=== PATIENT | female | born 1960 | race Caucasian/White ===

== ENCOUNTER 2017-02-05 15:35 | Inpatient (IN) | payer OTHER ==
[2017-02-05 16:44] LABS: BASOPHIL 4.5 % (0-2.0); EOSINOPHIL 1.7 % (0-4.5); MCH 30.5 pg (25.7-33.7); MCHC 33.6 g/dl (32.0-36.0); MEAN CELL VOLUME 90.7 fl (80-96); MEAN PLT VOLUME 8.2 fl (7.5-11.1); NEUTROPHILS 69.8 % (42.8-82.8); PLATELET COUNT 314 K/MM3 (134-434); RDW 13.5 % (11.6-15.6); WHITE BLOOD COUNT 10.6 K/mm3 (4.0-10.8)
[2017-02-05 17:05] LABS: ALBUMIN 4.2 g/dl (3.5-5.0); ALK PHOS 61 U/L (32-92); ANION GAP 14 (8-16); BILIRUBIN,TOTAL 0.6 mg/dl (0.2-1.0); CALCIUM 9.8 mg/dl (8.4-10.2); CO2 22 mmol/L (22-28); GLUCOSE,RANDOM 87 mg/dl (74-106); SGOT/AST 19 U/L (10-42); SGPT/ALT 14 U/L (10-40); TOT PROT 7.1 g/dl (6.4-8.3)
[2017-02-05 17:06] LABS: COCKROFT - GAULT NT
--- NOTE | 2017-02-05 17:08 | PDOC ---
History of Present Illness - General History Source: Patient Exam Limitations: No Limitations - History of Present Illness Initial Comments: 02/05/17 17:40 Patient is a 57 year old female with pmhx of lymphoma and recurrent bowel obstructions who presents to the ED with nausea, vomiting, abdominal pain and abdominal distention. Patient reports the abdominal pain to be localized to her upper/mid abdomen, sharp, aching, deep pain in nature, 7/10 in severity. Patient also reports chills. Patient states that this morning while she was at work she developed abdominal pain, cramping/spasm in nature, 7/10 in severity. She then reports abdominal distention and an episode of vomiting. Patient contacted Dr. Blackman who ordered hyoscyamine to her pharmacy which alleviated the pain slightly. Patient states her last bowel movement was yesterday. She states that she had coffee and juice and nothing else. PMH: Lymphoma, chronic low back pain, lumbar herniated disc PSH: abdominal lymph node biopsy, hysterectomy, abdominal scar tissue removal. Social history: No smoking, no alcohol, no recreational drug Allergy: clindamycin <Renu Hill - Last Filed: 02/05/17 17:40> - General History Source: Patient Exam Limitations: No Limitations <Kaitlin Georges - Last Filed: 02/06/17 10:51> - General Chief Complaint: Nausea/Vomiting Stated Complaint: BOWEL OBSTRUCTION Time Seen by Provider: 02/05/17 16:45 Past History <Renu Hill - Last Filed: 02/05/17 17:40> - Past Medical History Anemia: No Asthma: No Cancer: Yes (INTESTINAL LYMPHOMA) Cardiac Disorders: No CVA: No COPD: No CHF: No Dementia: No Diabetes: No GI Disorders: Yes (SMALL BOWEL OBSTRUCTION, IBF) Disorders: No HTN: No Hypercholesterolemia: No Liver Disease: No Seizures: No Thyroid Disease: Yes (THYROID NODULE) - Surgical History Abdominal Surgery: Yes (INTESTINAL BX & LYMPH NODES) Appendectomy: No Cardiac Surgery: No Cholecystectomy: No Lung Surgery: No Neurologic Surgery: No Orthopedic Surgery: No - Immunization History Immunization Up to Date: No - Psycho/Social/Smoking Cessation Hx Anxiety: No Suicidal Ideation: No Smoking Status: No Smoking History: Never smoked Have you smoked in the past 12 months: No Number of Cigarettes Smoked Daily: 0 Information on smoking cessation initiated: No Hx Alcohol Use: Yes (wine occasionally) Drug/Substance Use Hx: No Substance Use Type: None Hx Substance Use Treatment: No <Kaitlin Georges - Last Filed: 02/06/17 10:51> - Past Medical History Allergies/Adverse Reactions: Allergies Allergy/AdvReac Type Severity Reaction Status Date / Time clindamycin AdvReac Intermediate Nausea Verified 02/05/17 15:54 Home Medications: Ambulatory Orders Cholecalciferol (Vitamin D3) [Vitamin D3] 1,000 unit PO DAILY capsule 11/19/12 Review of Systems - Review of Systems Able to Perform ROS?: Yes Comments:: 02/05/17 17:40 GENERAL/CONSTITUTIONAL: (+)chills. No: fever, weakness, loss of appetite. HEAD, EYES, EARS, NOSE AND THROAT: No: change in vision, ear pain, discharge, sore throat, throat swelling. CARDIOVASCULAR: No: chest pain, lightheadedness, palpitations, syncope RESPIRATORY: No: cough, shortness of breath, wheezing, hemoptysis, stridor. GASTROINTESTINAL: (+)nausea, vomiting, abdominal cramping, abdominal distention. No: diarrhea, rectal bleeding, constipation. GENITOURINARY: No: dysuria, hematuria, frequency, urgency, flank pain. MUSCULOSKELETAL: No: back pain, neck pain, joint pain, muscle swelling or pain SKIN: No: lesions, pallor, rash or easy bruising. NEUROLOGIC: No: headache, vertigo, paresthesias, weakness ENDOCRINE: No: unexplained weight gain or loss HEMATOLOGIC/LYMPHATIC: No: anemia, easy bleeding, swelling nodes <Renu Hill - Last Filed: 02/05/17 17:40> *Physical Exam - Vital Signs Last Vital Signs Temp Pulse Resp BP Pulse Ox 98.1 F 72 18 117/68 100 02/05/17 15:37 02/05/17 15:37 02/05/17 15:37 02/05/17 17:32 02/05/17 15:37 - Physical Exam Comments: 02/05/17 17:41 GENERAL: The patient is in no acute distress. HEAD: Normal with no signs of trauma. EYES: PERRLA, EOMI, sclera anicteric, conjunctiva clear. ENT: Ears normal, nares patent, oropharynx clear without exudates. Moist mucous membranes. NECK: Normal range of motion, supple without lymphadenopathy, JVD, or masses. LUNGS: Breath sounds equal, clear to auscultation bilaterally. No wheezes, and no crackles. HEART:Regular rate and rhythm, normal S1 and S2 without murmur, rub or gallop. ABDOMEN: (+)upper abdominal tenderness, epigastric tenderness, (+)abdominal distention, no guarding, no rebound. Soft, normoactive bowel sounds. EXTREMITIES: Normal range of motion, no edema. No clubbing or cyanosis. No erythema, or tenderness. NEUROLOGICAL: Cranial nerves II through XII grossly intact. Normal speech. No focal neurological deficits. MUSCULOSKELETAL: Back nontender to palpation, no CVA tenderness SKIN: Warm, Dry, normal turgor, no rashes or lesions noted. <Renu Hill - Last Filed: 02/05/17 17:40> - Vital Signs Last Vital Signs Temp Pulse Resp BP Pulse Ox 98.1 F 72 18 117/68 100 02/05/17 15:37 02/05/17 15:37 02/05/17 15:37 02/05/17 15:37 02/05/17 15:37 <Kaitlin Georges - Last Filed: 02/06/17 10:51> ED Treatment Course - LABORATORY CBC & Chemistry Diagram: 02/05/17 16:25 02/05/17 16:25 - ADDITIONAL ORDERS Additional order review: Laboratory Results 02/05/17 16:25 Sodium 140 Potassium 4.0 Chloride 104 Carbon Dioxide 22 Anion Gap 14 BUN 23 H D Creatinine 1.0 Creat Clearance w eGFR 56.75 Random Glucose 87 Calcium 9.8 Total Bilirubin 0.6 D AST 19 ALT 14 D Alkaline Phosphatase 61 Total Protein 7.1 Albumin 4.2 02/05/17 16:25 RBC 4.11 MCV 90.7 MCHC 33.6 RDW 13.5 MPV 8.2 Neutrophils % 69.8 Lymphocytes % 19.5 D Monocytes % 4.5 Eosinophils % 1.7 Basophils % 4.5 H D <Renu Hill - Last Filed: 02/05/17 17:40> - LABORATORY CBC & Chemistry Diagram: 02/06/17 07:47 02/05/17 16:25 - ADDITIONAL ORDERS Additional order review: Laboratory Results 02/05/17 16:25 Sodium 140 Potassium 4.0 Chloride 104 Carbon Dioxide 22 Anion Gap 14 BUN 23 H D Creatinine 1.0 Creat Clearance w eGFR 56.75 Random Glucose 87 Calcium 9.8 Total Bilirubin 0.6 D AST 19 ALT 14 D Alkaline Phosphatase 61 Total Protein 7.1 Albumin 4.2 02/05/17 16:25 RBC 4.11 MCV 90.7 MCHC 33.6 RDW 13.5 MPV 8.2 Neutrophils % 69.8 Lymphocytes % 19.5 D Monocytes % 4.5 Eosinophils % 1.7 Basophils % 4.5 H D - RADIOLOGY Radiology Studies Ordered: Category Date Time Status ABDOMEN FLAT & UPRIGHT [RAD] Stat Radiology 02/05/17 16:30 Ordered <Kaitlin Georges - Last Filed: 02/06/17 10:51> Medical Decision Making - Medical Decision Making 02/05/17 17:08 A portion of this note was documented by [email or web address] under my direction. I have reviewed the details of the note, within reason, and agree with the documentation with the following case summary and management plan written by me. Nursing documentation reviewed and incorporated into medical decision making 57 yo F h/o lymph node biopsy x 2, pt also had a c section Pt has had several episodes of small bowel obstruction Previously, she had an SBO every few months She is s/p a JON[facility] at [facility] with improvement of her symptoms Last SBO was 1 year ago Pt states that this morning, she went to work She felt upper abdominal pain Deep pain Rated 9/10 Pt feels Nauseous Called her PMD who prescribed Hyocyamine PT states it slightly improved her abdominal pain but not much 02/06/17 10:45 Will do labs Will do x ray Will likely need to do CT abd and pelvis Pt given Zofran and IVF and morphine 02/06/17 10:50 Laboratory Tests 02/05/17 02/05/17 16:25 16:25 WBC 10.6 Hgb 12.5 D Hct 37.3 Plt Count 314 BUN 23 H D Creatinine 1.0 Xray demonstrates ileus vs early sbo CT pending Pt signed out to Dr. Simpson <Kaitlin Georges - Last Filed: 02/06/17 10:51> *DC/Admit/Observation/Transfer - Attestations Scribe Attestion: 02/05/17 17:43 Documentation prepared by MIMI Vallejo, acting as medical record consultant for Kaitlin Georges MD. <Renu Hill - Last Filed: 02/05/17 17:40> <Kaitlin Georges - Last Filed: 02/06/17 10:51> Diagnosis at time of Disposition: Small bowel obstruction - Discharge Dispostion Condition at time of disposition: Guarded
[2017-02-05] MEDS ORDERED: SODIUM CHLORIDE 1,000 ML IV STA ×2 (17:26→18:58)
[2017-02-05] MEDS ORDERED: morphine CARPU-JECT 4 MG/1 ML DISP.SYRIN IVPUSH ONE (17:26)
[2017-02-05] MEDS ORDERED: ONDANSETRON 4 MG/2 ML VIAL IVPUSH ONE ×2 (17:26→22:00)
[2017-02-05] MEDS ORDERED: morphine CARPU-JECT 2 MG/1 ML DISP.SYRIN ONE (17:34)
[2017-02-05] MEDS ORDERED: ONDANSETRON 4 MG/2 ML VIAL ONE ×2 (17:34→21:59)
[2017-02-05] MEDS ORDERED: HYOSCYAMINE SULFATE 0.125 MG *ODT PO ONE (18:58)
[2017-02-05] MEDS ORDERED: HYOSCYAMINE SULFATE 0.125 MG *ODT ONE (19:10)
[2017-02-05] MEDS ORDERED: KETOROLAC TROMETHAMINE 30 MG/1 ML VIAL ONE (19:15)
[2017-02-05] MEDS ORDERED: KETOROLAC TROMETHAMINE 30 MG/1 ML VIAL IVPUSH ONE (19:18)
--- NOTE | 2017-02-05 19:18 | PDOC ---
*Physical Exam - Vital Signs Last Vital Signs Temp Pulse Resp BP Pulse Ox 98.1 F 62 18 129/75 100 02/05/17 15:37 02/05/17 17:49 02/05/17 17:49 02/05/17 17:49 02/05/17 17:49 ED Treatment Course - LABORATORY CBC & Chemistry Diagram: 02/05/17 16:25 02/05/17 16:25 - ADDITIONAL ORDERS Additional order review: Laboratory Results 02/05/17 16:25 Sodium 140 Potassium 4.0 Chloride 104 Carbon Dioxide 22 Anion Gap 14 BUN 23 H D Creatinine 1.0 Creat Clearance w eGFR 56.75 Random Glucose 87 Calcium 9.8 Total Bilirubin 0.6 D AST 19 ALT 14 D Alkaline Phosphatase 61 Total Protein 7.1 Albumin 4.2 02/05/17 16:25 RBC 4.11 MCV 90.7 MCHC 33.6 RDW 13.5 MPV 8.2 Neutrophils % 69.8 Lymphocytes % 19.5 D Monocytes % 4.5 Eosinophils % 1.7 Basophils % 4.5 H D - Medications Given in the ED: ED Medications Discontinued Medications Generic Name Dose Route Start Last Admin Trade Name Freq PRN Reason Stop Dose Admin Sodium Chloride 1,000 mls @ 1,000 mls/hr 02/05/17 17:26 02/05/17 17:32 Normal Saline - IV 02/05/17 18:25 1,000 mls/hr ASDIR STA Administration Morphine Sulfate 4 mg 02/05/17 17:26 02/05/17 17:48 Morphine Injection - IVPUSH 02/05/17 17:27 4 mg ONCE ONE Administration Ondansetron HCl 4 mg 02/05/17 17:26 02/05/17 17:48 Zofran Injection IVPUSH 02/05/17 17:27 4 mg ONCE ONE Administration Progress Note - Progress Note Progress Note: Care of this patient received from Dr. Georges. Patient has history of recurrent small bowel obstruction after multiple laparotomies. Patient presents with symptoms consistent with previous episodes of small bowel obstruction Medical Decision Making - Medical Decision Making 02/05/17 22:20 Patient given 30 mg of Toradol IV. Patient stated that she has had relief in the past when given this with small bowel obstruction. Also, additional dose of Zofran 4 mg IV given for persistent nausea. CT of the abdomen and pelvis interpreted by Dr. Garcia of radiology staff: Moderate distention mid small bowel loops with normal size distal small bowel loops suggestive of mid to distal small bowel obstruction. Also, there is questionable thickening of the mid small bowel loops on the right side; possible enteritis, less likely ischemic Patient adamantly refuses nasogastric tube placement Patient's PMD is Dr. Blackman. Case discussed with Dr. Madera of [facility] service. Patient will be admitted to med/surg bed here Patient was given 0.5 mg dose of IV Dilaudid for analgesia; Toradol had been somewhat effective but pain recurred. *DC/Admit/Observation/Transfer Diagnosis at time of Disposition: Small bowel obstruction - Discharge Dispostion Condition at time of disposition: Guarded Admit: Yes - Referrals - Patient Instructions - Post Discharge Activity
[2017-02-05 20:01] LABS: URINE APPEARANCE Clear; URINE BILIRUBIN Negative (NEGATIVE); URINE BLOOD Negative (NEGATIVE); URINE GLUCOSE (UA) Negative (NEGATIVE); URINE KETONE Negative (NEGATIVE); URINE LEUK ESTERASE Negative (NEGATIVE); URINE NITRITE Negative (NEGATIVE); URINE PROTEIN Negative (NEGATIVE); URINE UROBILINOGEN 0.2 E.U/dl (0.2-1.0)
[2017-02-05 20:03] LABS: URINE COLOR YELLOW
[2017-02-05] MEDS ORDERED: HYDROmorphone HCL CARPU-JECT 1 MG/1 ML DISP.SYRIN IVPUSH ONE (22:23)
[2017-02-05] MEDS ORDERED: HYDROmorphone HCL CARPU-JECT 2 MG/1 ML DISP.SYRIN ONE (22:24)
[2017-02-05] MEDS ORDERED: ONDANSETRON 4 MG/2 ML VIAL IVPB PRN (23:21)
[2017-02-05] MEDS ORDERED: HYDROmorphone HCL CARPU-JECT 1 MG/1 ML DISP.SYRIN IVPUSH PRN (23:21)
--- NOTE | 2017-02-05 23:26 | HP ---
CHIEF COMPLAINT: Nausea/vomiting PCP: [facility] HISTORY OF PRESENT ILLNESS: This is a 57 year old female with a past medical history of abdominal lymphoma s /p multiple lymph node biopsies, recurrent SBO, chronic LBP presented to ED with N/V. She reports started with abdominal pain/cramping for which she took hyoscyamine with some relief. The pain later progressed and she developed abdominal distention and vomiting. Upon exam, pt reports pain improved greatly s /p dilaudid. ER course was notable for: (1) Xray c/w SBO (2) CT scan c/w SBO (3) WBC 10.6 Recent Travel: pt denies PAST MEDICAL HISTORY: lymphoma recurrent bowel obstructions chronic LBP, lumbar herniated disc PAST SURGICAL HISTORY: lymph node biopsy hysterectomy abd scar tissue removal (?lysis of adhesions) Social History: Smoking: pt denies Alcohol: one glass wine/week Drugs: pt denies Family History: mother alive, with ovarian CA, age 92, h/o HTN father 89, dementia, glaucoma 2 sisters and 1 brother all healthy Allergies clindamycin Adverse Reaction (Intermediate, Verified 02/05/17 15:54) Nausea STOMACH UPSET. HOME MEDICATIONS: Cholecalciferol (Vitamin D3) [Vitamin D3] 1,000 unit PO DAILY capsule 11/19/12 Bupropion HCl 300mg ER daily Pantoprazole Sodium 40mg BID Levothyroxine 75mcg po daily REVIEW OF SYSTEMS CONSTITUTIONAL: Absent: fever, chills, diaphoresis, generalized weakness, malaise, loss of appetite, weight change HEENT: Absent: rhinorrhea, nasal congestion, throat pain, throat swelling, difficulty swallowing, mouth swelling, ear pain, eye pain, visual changes CARDIOVASCULAR: Absent: chest pain, syncope, palpitations, irregular heart rate, lightheadedness , peripheral edema RESPIRATORY: Absent: cough, shortness of breath, dyspnea with exertion, orthopnea, wheezing, stridor, hemoptysis GASTROINTESTINAL: Present: abdominal pain, abdominal distension, nausea, vomiting Absent: diarrhea, constipation, melena, hematochezia GENITOURINARY: Absent: dysuria, frequency, urgency, hesitancy, hematuria, flank pain, genital pain MUSCULOSKELETAL: Absent: myalgia, arthralgia, joint swelling, back pain, neck pain SKIN: Absent: rash, itching, pallor HEMATOLOGIC/IMMUNOLOGIC: Absent: easy bleeding, easy bruising, lymphadenopathy, frequent infections ENDOCRINE: Absent: unexplained weight gain, unexplained weight loss, heat intolerance, cold intolerance NEUROLOGIC: Absent: headache, focal weakness or paresthesias, dizziness, unsteady gait, seizure, mental status changes, bladder or bowel incontinence PSYCHIATRIC: Absent: anxiety, depression, suicidal or homicidal ideation, hallucinations. PHYSICAL EXAMINATION Vital Signs - 24 hr 3 02/05/17 02/05/17 02/05/17 02/05/17 15:37 17:32 17:49 22:34 Temperature 98.1 F Pulse Rate 72 Pulse Rate [ 62 62 Apical] Respiratory 18 18 16 Rate Blood Pressure 117/68 117/68 Blood Pressure 129/75 144/74 [Arm] O2 Sat by Pulse 100 100 100 Oximetry (%) GENERAL: Awake, alert, and fully oriented, in no acute distress. HEAD: Normal with no signs of trauma. EYES: Pupils equal, round and reactive to light, extraocular movements intact, sclera anicteric, conjunctiva clear. No lid lag. EARS, NOSE, THROAT: Ears normal, nares patent, oropharynx clear without exudates. Moist mucous membranes. NECK: Normal range of motion, supple without lymphadenopathy, JVD, or masses. LUNGS: Breath sounds equal, clear to auscultation bilaterally. No wheezes, and no crackles. No accessory muscle use. HEART: Regular rate and rhythm, normal S1 and S2 without murmur, rub or gallop. ABDOMEN: Soft, not distended, normoactive bowel sounds, no guarding, no rebound , no masses. No hepatomegaly or splenomegaly. + tenderness periumbilical region MUSCULOSKELETAL: Normal range of motion at all joints. No bony deformities or tenderness. No CVA tenderness. UPPER EXTREMITIES: 2+ pulses, warm, well-perfused. No cyanosis. No clubbing. No peripheral edema. LOWER EXTREMITIES: 2+ pulses, warm, well-perfused. No calf tenderness. No peripheral edema. NEUROLOGICAL: Cranial nerves II-XII intact. Normal speech. Normal gait. PSYCHIATRIC: Cooperative. Good eye contact. Appropriate mood and affect. SKIN: Warm, dry, normal turgor, no rashes or lesions noted, normal capillary refill. Laboratory Results - last 24 hr 3 02/05/17 02/05/17 02/05/17 16:25 16:25 19:21 WBC 10.6 RBC 4.11 Hgb 12.5 D Hct 37.3 MCV 90.7 MCHC 33.6 RDW 13.5 Plt Count 314 MPV 8.2 Neutrophils % 69.8 Lymphocytes % 19.5 D Monocytes % 4.5 Eosinophils % 1.7 Basophils % 4.5 H D Sodium 140 Potassium 4.0 Chloride 104 Carbon Dioxide 22 Anion Gap 14 BUN 23 H D Creatinine 1.0 Creat Clearance w eGFR 56.75 Random Glucose 87 Calcium 9.8 Total Bilirubin 0.6 D AST 19 ALT 14 D Alkaline Phosphatase 61 Total Protein 7.1 Albumin 4.2 Urine Color Yellow Urine Appearance Clear Urine pH 5.0 Ur Specific [place] <= 1.005 Urine Protein Negative Urine Glucose (UA) Negative Urine Ketones Negative Urine Blood Negative Urine Nitrite Negative Urine Bilirubin Negative Urine Urobilinogen 0.2 e.u/dl Ur Leukocyte Esterase Negative ABDOMEN FLAT UPRIGHT Abdominal pain and vomiting. X-ray of the abdomen, supine and upright. Since prior x-ray of the abdomen dated 03/09/2015, the there are moderately dilated small bowel loops in the mid abdomen. Kyphoplasty of L1 vertebral body again noted with extravasation of cement along the right paravertebral soft tissue Impression: Moderate air distention of the mid small bowel loops rule out ileus versus early small bowel obstruction CT/ABDOMEN PELVIS CT W/O CONTR Evaluate for small bowel obstruction CT scan of the abdomen pelvis following oral contrast administration only Coronal and sagittal reformatted images were obtained Compared to prior CT scan of the abdomen pelvis dated 03/08/2015 There are mild atelectatic changes in the left lung base and mild emphysematous changes in included portion of the lower lung. The heart is within normal limits in size. The stomach is adequately distended without wall thickening. Evaluation of the liver, spleen, gallbladder, pancreas , both adrenal glands and both kidneys appear unremarkable except for a left renal upper pole cyst measuring 2.2 cm and right renal lower pole cyst measuring 1.8 cm. Moderate amount of fecal residue in the colon. Moderate dilatation of the mid small bowel loops with normal size distal small bowel loops and terminal ileum rule out mid small bowel obstruction there is thickening of the mid to distal small bowel wall. No free air or free fluid in the abdomen pelvis. Partially distended urinary bladder without wall thickening. Nonvisualization of the uterus. Visualized osseous structures appear intact with moderate to marked degenerative disc disease at L5-S1 level and vertebroplasty of L1 vertebral body. Impression: Moderate distention of the mid small bowel loops with normal size distal small bowel loops suggestive of mid to distal small bowel obstruction. There is questionable thickening of the mid small bowel loops in right side of the abdomen, cannot rule out enteritis. Less likely ischemic. Close follow-up is recommended. ASSESSMENT/PLAN: 57yF with PMH lymphoma, multiple SBO, lumbar disc herniations with pain presented to ED with nausea, vomiting, abdominal pain. She is being admitted for SBO. Small bowel obstruction - NPO except ice chips sparingly - discussed NGT placement with patient who adamantly refuses despite education and encouragement - NS @ 100cc/hr - ? enteritis seen on CT scan, will monitor WBC and temp, defer antibiotics for now. - protonix IV instead of home PO DVT PPX - low risk, pt fully ambulatory. cont ambulation FEN - NS @100cc/hr - repeat BMP/Mg in am - NPO Dispo: pt currently requires inpatient management of her emergent condition. Visit type - Emergency Visit Emergency Visit: Yes Care time: The patient presented to the Emergency Department on the above date and was hospitalized for further evaluation of their emergent condition. - New Patient This patient is new to me today: Yes Date on this admission: 02/05/17 - Critical Care Critical Care patient: No
[2017-02-05] MEDS ORDERED: SODIUM CHLORIDE 1,000 ML IV SCH (23:30)
[2017-02-06 00:37] VITALS: BMI 25.6
--- NOTE | 2017-02-06 07:38 | PN ---
Physical Exam: SUBJECTIVE: Patient seen and examined, patient reports flatus, patient does report abdominal pain and nausea. OBJECTIVE: patient is a 57 year old female with a past medical history of anxiety, hypothyroidism, abdominal lymphoma s/p mesenteric lymph node open surgery ([facility]), recurrent SBO, and chronic lumbar back pain (s/p kyphoplasty), patient was admitted from the emergency department for a small bowel obstruction. Vital Signs Period Temp Pulse Resp BP Sys/[place] Pulse Ox Last 24 Hr 98.6 F-98.7 F 65-66 18-18 98-117/53-93 95-100 GENERAL: The patient is awake, alert, and fully oriented, in no acute distress. HEAD: Normal with no signs of trauma. EYES: PERRL, extraocular movements intact, sclera anicteric, conjunctiva clear. No ptosis. ENT: Ears normal, nares patent, oropharynx clear without exudates, moist mucous membranes. NECK: Trachea midline, full range of motion, supple. LUNGS: Breath sounds equal, clear to auscultation bilaterally, no wheezes, no crackles, no accessory muscle use. HEART: Regular rate and rhythm, S1, S2 without murmur, rub or gallop. ABDOMEN: Soft, midline lower abdomen surgical scar well healed, positive bowel sounds in all 4 quadrants, diffuse abdominal tenderness, nondistended, no guarding, no rebound, no hepatosplenomegaly, no masses. EXTREMITIES: 2+ pulses, warm, well-perfused, no edema. NEUROLOGICAL: Cranial nerves II through XII grossly intact. Normal speech, gait not observed. PSYCH: Normal mood, normal affect. SKIN: Warm, dry, normal turgor, no rashes or lesions noted Active Medications Generic Name Dose Route Start Last Admin Trade Name Freq PRN Reason Stop Dose Admin Hydromorphone HCl 0.5 mg 02/05/17 23:21 Dilaudid Injection - IVPUSH Q4H PRN PAIN Sodium Chloride 1,000 mls @ 100 mls/hr 02/05/17 23:30 02/05/17 23:34 Normal Saline - IV 100 mls/hr ASDIR HERI Administration Pantoprazole Sodium 100 mls @ 200 mls/hr 02/06/17 10:00 Protonix 40mg Ivpb (Pre-Docked) IVPB BID HERI Ondansetron HCl 4 mg 02/05/17 23:21 02/06/17 00:17 Zofran Injection IVPB 4 mg Q6H PRN Administration NAUSEA IMAGING xray of abd flat/upright: Impression: Moderate air distention of the mid small bowel loops rule out ileus versus early small bowel obstruction CT/ABDOMEN PELVIS CT W/O CONTR: Moderate distention of the mid small bowel loops with normal size distal small bowel loops suggestive of mid to distal small bowel obstruction. There is questionable thickening of the mid small bowel loops in right side of the abdomen, cannot rule out enteritis. Less likely ischemic. ASSESSMENT/PLAN: 1) Small bowel obstruction - sbo likely secondary from lysis of adhesions - repeat abd xray, resolution of sbo, start clear liquid diet - no leukocytosis noted pt afebrile - appreciate surgery input 2) endo hypothyroidism - continue synthroid, home dose PPX - protonix - oob FEN - d5ns @ 75ml/hr - clear liquid diet-->advance as tolerated Dispo: pt currently requires inpatient management of her emergent condition.
--- NOTE | 2017-02-06 07:50 | PN ---
Physical Exam: SUBJECTIVE: Patient seen and examined OBJECTIVE: Vital Signs Period Temp Pulse Resp BP Sys/[place] Pulse Ox Last 24 Hr 98.6 F-98.7 F 65-66 18-18 98-117/53-93 95-100 GENERAL: The patient is awake, alert, and fully oriented, in no acute distress. HEAD: Normal with no signs of trauma. EYES: PERRL, extraocular movements intact, sclera anicteric, conjunctiva clear. No ptosis. ENT: Ears normal, nares patent, oropharynx clear without exudates, moist mucous membranes. NECK: Trachea midline, full range of motion, supple. LUNGS: Breath sounds equal, clear to auscultation bilaterally, no wheezes, no crackles, no accessory muscle use. HEART: Regular rate and rhythm, S1, S2 without murmur, rub or gallop. ABDOMEN: Soft, nontender, nondistended, normoactive bowel sounds, no guarding, no rebound, no hepatosplenomegaly, no masses. EXTREMITIES: 2+ pulses, warm, well-perfused, no edema. NEUROLOGICAL: Cranial nerves II through XII grossly intact. Normal speech, gait not observed. PSYCH: Normal mood, normal affect. SKIN: Warm, dry, normal turgor, no rashes or lesions noted Active Medications Generic Name Dose Route Start Last Admin Trade Name Freq PRN Reason Stop Dose Admin Hydromorphone HCl 0.5 mg 02/05/17 23:21 Dilaudid Injection - IVPUSH Q4H PRN PAIN Sodium Chloride 1,000 mls @ 100 mls/hr 02/05/17 23:30 02/05/17 23:34 Normal Saline - IV 100 mls/hr ASDIR HERI Administration Pantoprazole Sodium 100 mls @ 200 mls/hr 02/06/17 10:00 Protonix 40mg Ivpb (Pre-Docked) IVPB BID HERI Ondansetron HCl 4 mg 02/05/17 23:21 02/06/17 00:17 Zofran Injection IVPB 4 mg Q6H PRN Administration NAUSEA ASSESSMENT/PLAN:
[2017-02-06 09:04] LABS: BASOPHIL 0.1 % (0-2.0); EOSINOPHIL 2.3 % (0-4.5); MCH 30.4 pg (25.7-33.7); MCHC 33.4 g/dl (32.0-36.0); MEAN CELL VOLUME 90.9 fl (80-96); MEAN PLT VOLUME 8.3 fl (7.5-11.1); NEUTROPHILS 66.6 % (42.8-82.8); PLATELET COUNT 238 K/MM3 (134-434); RDW 13.4 % (11.6-15.6); WHITE BLOOD COUNT 6.2 K/mm3 (4.0-10.8)
[2017-02-06] MEDS ORDERED: PANTOPRAZOLE SODIUM 100 ML IVPB SCH (10:00)
[2017-02-06 11:05] LABS: ANION GAP 7 (8-16); CALCIUM 8.2 mg/dl (8.4-10.2); CO2 23 mmol/L (22-28); CREATININE 0.9 mg/dl (0.6-1.3); GLUCOSE,RANDOM 91 mg/dl (74-106)
[2017-02-06 11:06] LABS: MAGNESIUM 1.7 mg/dL (1.8-2.4)
[2017-02-06] MEDS ORDERED: MAGNESIUM SULFATE 2 GM in SODIUM CHLORIDE 100 ML IVPB ONE (11:25)
--- NOTE | 2017-02-06 11:50 | EKG ---
Test Reason : Blood Pressure : / mmHG Vent. Rate : 062 BPM Atrial Rate : 062 BPM P-R Int : 160 ms QRS Dur : 090 ms QT Int : 456 ms P-R-T Axes : 061 067 048 degrees QTc Int : 462 ms NORMAL SINUS RHYTHM POSSIBLE LEFT ATRIAL ENLARGEMENT BORDERLINE ECG WHEN COMPARED WITH ECG OF 06-MAY-1999 12:18, NO SIGNIFICANT CHANGE WAS FOUND Confirmed by CALVIN SMITH, CORIN ([id number]) on 02/06/2017 11:50:36 AM Referred By: ALLISON SOLIS Confirmed By:CORIN SIMPSON MD
[2017-02-06] MEDS ORDERED: MAGNESIUM SULF 50% (8.12 MEQ/2 ML-1 GM VIAL) IVPB SCH (12:30)
[2017-02-06] MEDS ORDERED: DEXTROSE 5%-NORMAL SALINE 1,000 ML IV SCH (13:15)
--- NOTE | 2017-02-06 14:51 | PN ---
Progress Note (short form) - Note Progress Note: surgery pt seen and examined. full consult dictated. 57f with multiple previous sbo, previous laparotomy and biopsy for now lymphoma in remission, presents with abd pain, n/v after eating zucchini Sunday night. Ct shows possible psbo and kub today shows contrast in colon. Pt currently feels well and is hungry. no flatus. afebrile abd- soft, nt, nd Plan- resolving psbo secondary to adhesions, possible fiber load, doubt from cancer. will give trial of liquids. if tolerates can go home in am on liquids and advance to regular diet on Sunday.
--- NOTE | 2017-02-06 19:35 | CONS ---
DATE OF CONSULTATION: 02/06/2017 This is an inpatient consultation at the request of Ingrid Coats NP. BRIEF HISTORY: This is a 57-year-old female, well-known to me who has had multiple admissions for small bowel obstruction ever since she had a laparotomy and biopsy for abdominal lymphoma. Her lymphoma has been in remission; however, she has recurrent bouts of obstruction. She states that Sunday morning, after eating zucchini Sunday night, she woke and began having spasms in her abdomen. She went to her doctor's office for blood work as had been scheduled. As the pain worsened, she ended up being sent to the emergency room. There, she had a CT scan of her abdomen and pelvis, which was suggestive of a possible partial bowel obstruction. She was admitted to the hospital, refused nasogastric tube decompression, and was kept n.p.o. Overnight, she feels better. Her pain has resolved. She is currently hungry, but she denies passing flatus. She has had an abdominal x-ray, which has not been officially read, but appears to be unremarkable and shows contrast within her large bowel. PAST MEDICAL HISTORY: Patient's past medical history is significant for hypothyroid disease, lymphoma, and recurrent small bowel obstruction and lower back pain. PAST SURGICAL HISTORY: Includes lymph node biopsy through laparotomy as well as a hysterectomy and removal of scar tissue. SOCIAL HISTORY: Negative for alcohol. Negative for tobacco. ALLERGIES: CLINDAMYCIN. HOME MEDICATIONS: Include Wellbutrin, Protonix, and Synthroid. FAMILY HISTORY: Noncontributory. REVIEW OF SYSTEMS: General: Denies fatigue or malaise. Cardiac: Denies chest pain or palpitations. Respiratory: No shortness of breath or wheeze. Gastrointestinal: As in HPI. Denies diarrhea. Denies blood in the stool. Denies recent weight loss. Genitourinary: Denies dysuria. Musculoskeletal: Denies joint pain or joint swelling. Psychiatric: Denies hearing pressuring voices. PHYSICAL EXAMINATION: General: This is a well-developed, well-nourished, 57-year-old female in no distress. Vital signs: She is afebrile. Her vital signs are stable. HEENT: Head is normocephalic. Sclerae are anicteric. Neck: Supple. Chest: Clear. Abdomen: Soft, nontender, nondistended. She has a midline surgical scar. No obvious hernias. Extremities: Have no clubbing, cyanosis, or edema. LABORATORY: White blood cell count is normal at 6.2. There is not a shift. Her chemistries are unremarkable. Her imaging is as in the HPI. ASSESSMENT: A 57-year-old female with multiple previous small bowel obstructions, status post surgery for lymphoma. Her lymphoma was felt to be recurrent. This is likely secondary to adhesions with possible fiber load from the zucchini causing a partial obstruction. Clinically this is resolving as she no longer has pain and her abdominal x-ray is unremarkable. I cannot rule out that her lymphoma is back and causing this, but I find it less likely. At this point, I recommend a trial of liquids. If she tolerates, she can be discharged home in the morning. I would keep her on liquids until Sunday, at which point she could advance to a regular diet at home. If she fails liquids and may require surgery, she should consider transfer to a tertiary care center in the setting of possible metastatic lymphoma. Patient is currently nontoxic and without pain. DO VICKY DELCID/[id number]
[2017-02-06] MEDS ORDERED: ACETAMINOPHEN 500 MG TABLET (FP) PO PRN (21:04)
[2017-02-06] MEDS: PANTOPRAZOLE 40 MG TABLET (FP) PO SCH (21:38)
[2017-02-07 06:02] VITALS: BP 97/60; PULSE 56; TEMP 97.9
[2017-02-07] MEDS ORDERED: LEVOTHYROXINE NA 75 MCG TABLET (FP) PO SCH (07:00)
[2017-02-07 09:15] LABS: ALBUMIN 3.1 g/dl (3.5-5.0); ALK PHOS 42 U/L (32-92); ANION GAP 7 (8-16); CALCIUM 8.7 mg/dl (8.4-10.2); CO2 25 mmol/L (22-28); CREATININE 0.8 mg/dl (0.6-1.3); GLUCOSE,RANDOM 94 mg/dl (74-106); MAGNESIUM 2.1 mg/dL (1.8-2.4); PHOSPHOROUS 2.9 mg/dl (2.5-4.6); SGOT/AST 17 U/L (10-42); SGPT/ALT 12 U/L (10-40); TOT PROT 5.5 g/dl (6.4-8.3)
[2017-02-07] MEDS ORDERED: CHOLECALCIFEROL (VITAMIN D3) 1,000 UNIT TABLET (FP) PO SCH (10:00)
[2017-02-07] MEDS ORDERED: PATIENT'S OWN MEDICATION (NON-FORMULARY) (Bupropion Hcl [Bupropion Xl] 300 MG) PO SCH (10:00)
[2017-02-07] MEDS ORDERED: PT OWN MED DRAWER 7, Y5N ONE (10:06)
[2017-02-07] MEDS: PANTOPRAZOLE 40 MG TABLET (FP) PO SCH (10:07)
[2017-02-07 10:12] LABS: BASOPHIL 0.8 % (0-2.0); EOSINOPHIL 2.7 % (0-4.5); MCH 30.9 pg (25.7-33.7); MCHC 33.5 g/dl (32.0-36.0); MEAN PLT VOLUME 8.2 fl (7.5-11.1); PLATELET COUNT 210 K/MM3 (134-434); RDW 14.5 % (11.6-15.6)
[2017-02-07 10:14] LABS: BILIRUBIN,TOTAL < 0.3 mg/dl (0.2-1.0)
--- NOTE | 2017-02-07 11:43 | DS ---
Physical Exam: SUBJECTIVE: Patient seen and examined OBJECTIVE: Vital Signs Period Temp Pulse Resp BP Sys/[place] Pulse Ox Last 24 Hr 97.7 F-98.6 F 56-63 18-18 97-108/59-63 98-99 PHYSICAL EXAM GENERAL: The patient is awake, alert, and fully oriented, in no acute distress. HEAD: Normal with no signs of trauma. EYES: PERRL, extraocular movements intact, sclera anicteric, conjunctiva clear. ENT: Ears normal, nares patent, oropharynx clear without exudates, moist mucous membranes. NECK: Trachea midline, full range of motion, supple. LUNGS: Breath sounds equal, clear to auscultation bilaterally, no wheezes, no crackles, no accessory muscle use. HEART: Regular rate and rhythm, S1, S2 without murmur, rub or gallop. ABDOMEN: Soft, nontender, nondistended, normoactive bowel sounds, no guarding, no rebound, no hepatosplenomegaly, no masses. EXTREMITIES: 2+ pulses, warm, well-perfused, no edema. NEUROLOGICAL: Cranial nerves II through XII grossly intact. Normal speech, gait not observed. PSYCH: Normal mood, normal affect. SKIN: Warm, dry, normal turgor, no rashes or lesions noted. LABS Laboratory Results - last 24 hr 02/07/17 02/07/17 07:35 07:35 WBC 5.0 RBC 3.62 Hgb 11.2 Hct 33.4 MCV 92.0 MCHC 33.5 RDW 14.5 Plt Count 210 MPV 8.2 Neutrophils % 56.0 Lymphocytes % 33.0 Monocytes % 7.5 Eosinophils % 2.7 Basophils % 0.8 Sodium 143 Potassium 3.9 Chloride 111 H Carbon Dioxide 25 Anion Gap 7 L BUN 11 D Creatinine 0.8 Creat Clearance w eGFR > 60 Random Glucose 94 Calcium 8.7 Phosphorus 2.9 Magnesium 2.1 D Total Bilirubin < 0.3 D AST 17 ALT 12 Alkaline Phosphatase 42 D Total Protein 5.5 L D Albumin 3.1 L D HOSPITAL COURSE: Date of Admission:02/05/17 Date of Discharge: 02/07/17 Minutes to complete discharge: 45 Discharge Summary Reason For Visit: BOWEL OBSTRUCTION Current Active Problems Small bowel obstruction (Acute) Condition: Guarded - Instructions Referrals: Mu Blackman MD [Primary Care Provider] - - Home Medications Comprehensive Discharge Medication List: Ambulatory Orders Cholecalciferol (Vitamin D3) [Vitamin D3] 1,000 unit PO DAILY capsule 11/19/12
== END 2017-02-07 12:35 | disposition home or self-care (01) | DRG 390 ==
LOC: FER 15:35 → FM/S 22:59
PROVIDERS: ADMIT Internal Medicine; ATTEND Nurse Practitioner Family
DX: K56.60 Unspecified intestinal obstruction (principal); E03.9 Hypothyroidism, unspecified
CPT/HCPCS: 36415; 74020-TC; 74176-TC; 80048; 80053; 81003; 83735; 84100; 85025; 93005; 99283-25

== ENCOUNTER 2018-09-05 15:18 | Inpatient (IN) | payer OTHER ==
--- NOTE | 2018-09-05 15:33 | PDOC ---
Attending Attestation - Resident Resident Name: Segun Dia - HPI HPI: 09/07/18 18:26 PT presents to the ED complaining of nausea, multiple episodes of vomiting and diffuse abdominal pain. HIstory of abdominal lymphoma, with many admissions for obstruction in the past. - Physicial Exam PE: 09/07/18 18:28 Agree with resident exam. Patient is uncomfortable. Abdomen is mildly distended and diffusely tender, but is soft without guarding or rebound. No CVA tenderness. - Medical Decision Making 09/07/18 18:29 Pt presets to the ED complaining of nausea, vomiting and abdominal pain consistnet with, but worse than, prior episodes of obstruction. CT shows obstruction. Patient initially refusing NGT, but then consented and tube was placed with copious billious drainage. Case discussed with Dr. Lee, surgeon epic professional who recommends transfer to [facility] for surgery. Case discussed with Dr. Badillo, who will admit her at [facility].
[2018-09-05] MEDS ORDERED: morphine CARPU-JECT 4 MG/1 ML DISP.SYRIN IVPUSH ONE (15:38)
[2018-09-05] MEDS ORDERED: ONDANSETRON 4 MG/2 ML VIAL IVPUSH ONE ×2 (15:38→19:21)
[2018-09-05] MEDS ORDERED: morphine SULFATE 4 MG/ML VIAL ONE (15:39)
[2018-09-05] MEDS ORDERED: ONDANSETRON 4 MG/2 ML VIAL ONE ×2 (15:39→19:03)
[2018-09-05 15:46] LABS: BASO % 1.4 % (0-2.0); EOS % 1.1 % (0-4.5); HEMATOCRIT 41.2 % (32.4-45.2); HEMOGLOBIN 13.5 GM/dl (10.7-15.3); LYMPH % 12.8 % (8-40); MCHC 32.9 g/dl (32.0-36.0); MEAN CELL VOLUME 91.3 fl (80-96); MEAN PLT VOLUME 8.1 fl (7.5-11.1); MONO % 9.7 % (3.8-10.2); PLATELET COUNT 331 K/MM3 (134-434); RBC 4.51 M/mm3 (3.60-5.2); RDW 13.6 % (11.6-15.6); WHITE BLOOD COUNT 11.1 K/mm3 (4.0-10.8)
--- NOTE | 2018-09-05 15:47 | PDOC ---
History of Present Illness - General Chief Complaint: Pain Stated Complaint: ABD PAIN Time Seen by Provider: 09/05/18 15:32 History Source: Patient Exam Limitations: No Limitations - History of Present Illness Initial Comments: 58 yo F w a hx of HCL, lymphoma, multiple abdominal surgeries, multiple SBO's presents to the ED with diffuse abdominal pain. She was last well yesterday when she went to sleep but then her pain began last night at 4 am. She did not come to the ED because this happens frequently and she thought it would go away. Today she took 400 mg of advil and prilosec for pain control. She ate some ritz crackers and then vomited them. She has been feeling nauseous all day since she woke up. She states the pain is worst in the elana-umbilical region and it is 10/10. It does not radiate but is associated with significant nausea and 2 episodes of NBNB vomiting. The pain is sharp in quality. She denies fevers but said she had both the chills and a significant amount of sweating earlier today. She denies any diarrhea or constipation. She also states her abdomen is making very high pitched noises. She denies any chest pain, SOB, difficulty breathing, headache, blurry vision, neck pain, back pain, dysuria, frequency, urgency, or recent fevers. PCP: Sveta Badillo PSH: Hysterectomy, multiple lymph node biopsies, adhesion removal Social Hx: Denies smoking, drinking or other substance usage. Allergies: Clindamycin Past History - Past Medical History Allergies/Adverse Reactions: Allergies Allergy/AdvReac Type Severity Reaction Status Date / Time clindamycin AdvReac Intermediate Nausea Verified 09/05/18 15:32 Home Medications: Ambulatory Orders Cholecalciferol (Vitamin D3) [Vitamin D3] 1,000 unit PO DAILY capsule 11/19/12 Anemia: No Asthma: No Cancer: Yes (INTESTINAL LYMPHOMA) Cardiac Disorders: No CVA: No COPD: No CHF: No Dementia: No Diabetes: No GI Disorders: Yes (SMALL BOWEL OBSTRUCTION, IBF) Disorders: No HTN: No Hypercholesterolemia: No Liver Disease: No Seizures: No Thyroid Disease: Yes (THYROID NODULE) - Surgical History Abdominal Surgery: Yes (INTESTINAL BX & LYMPH NODES) Appendectomy: No Cardiac Surgery: No Cholecystectomy: No Lung Surgery: No Neurologic Surgery: No Orthopedic Surgery: No - Immunization History Immunization Up to Date: No - Suicide/Smoking/Psychosocial Hx Smoking Status: No Smoking History: Never smoked Have you smoked in the past 12 months: No Number of Cigarettes Smoked Daily: 0 Hx Alcohol Use: No Drug/Substance Use Hx: No Substance Use Type: None Hx Substance Use Treatment: No Review of Systems - Review of Systems Able to Perform ROS?: Yes Comments:: CONSTITUTIONAL: Present Chills Absent: fever, no fatigue EYES: Absent: visual changes ENT: Absent: ear pain, no sore throat CARDIOVASCULAR: Absent: chest pain, no palpitations RESPIRATORY: Absent: cough, no SOB GI: Present: Abdominal pain, nausea, vomiting. Absent: no constipation, no diarrhea GENITOURINARY: Absent: dysuria, no frequency, no hematuria MUSKULOSKELETAL: Absent: back pain, no arthralgia, no myalgia SKIN: Absent: rash NEURO: Absent: headache *Physical Exam - Vital Signs Last Vital Signs Temp Pulse Resp BP Pulse Ox 97.9 F 60 18 126/80 98 09/05/18 15:18 09/05/18 15:18 09/05/18 15:18 09/05/18 15:18 09/05/18 15:18 - Physical Exam Comments: GENERAL: Well-appearing, well-nourished. Moderate distress. HEENT: Normocephalic, atraumatic. PERRL, EOM intact. CARDIOVASCULAR: Normal S1, S2. Regular rate and rhythm. PULMONARY: Clear to auscultation bilaterally. ABDOMEN: Abdomen is diffusely tender to palpation. Decreased bowel sounds. The abdomen is still soft and non-distended. EXTREMITIES: Normal ROM in all four extremities. No gross deformities. SKIN: Warm, dry. No rash NEUROLOGICAL: No focal neurological deficits. Moderate Sedation - Procedure Monitoring Vital Signs: Procedure Monitoring Vital Signs Temperature 97.9 F 09/05/18 15:18 Pulse Rate 60 09/05/18 15:18 Respiratory Rate 18 09/05/18 15:18 Blood Pressure 126/80 09/05/18 15:18 O2 Sat by Pulse Oximetry (%) 98 09/05/18 15:18 ED Treatment Course - LABORATORY CBC & Chemistry Diagram: 09/05/18 15:36 09/05/18 15:36 Medical Decision Making - Medical Decision Making 58 yo F w a hx of HCL, lymphoma, multiple abdominal surgeries, multiple SBO's presents to the ED with diffuse abdominal pain, nausea, and vomiting DDx IBNLT: SBO vs LBO, gastroenteritis, colitis, diverticulitis, cholecystitis, appendicitis, pancreatitis, perforated viscus. Plan: Labs, Urine, CTAP, EKG, zofran, analgesia, NPO, IV hydration, re-assess. Dr. Ulloa called - Patient has an SBO. Transition zone in right lower abdomen. Very legitimate obstruction. Most dilated loop measures 4.7 cm. - Will make patient NPO and consult surgery. - Patient's surgeon is Jason Bradford. Paging his service. Dr. Dinero is covering for Dr. Suzette gilliland. I spoke with him and he is going to get in touch with Dr. Bradford to see if he can operate on the patient. - Dr. dinero called back and said Dr. Bradford is on vacation and cannot come see the patient before tomorrow night at the earliest. He says if this is an emergency to contact whoever is supply chain consultant at the hospital. Will consult General surgery -Dr. Lee is supply chain consultant. - I spoke with Dr. lee about the patient. He agrees to accept the patient and evaluate the patient if the patient is brought over to [facility] - Patient agrees to be transferred to [facility]. - We will place an NG tube before transferring her. NG tube places with 600 cc amount of bilious return. Spoke with patient's PCP - Dr. Walsh who agrees to accept as an inpatient at [facility] We will perform a transfer from [place] to [facility]. *DC/Admit/Observation/Transfer Diagnosis at time of Disposition: Small bowel obstruction - Discharge Dispostion Condition at time of disposition: Guarded Decision to Admit order: Yes - Referrals Referrals: Sveta Badillo MD [Primary Care Provider] - - Patient Instructions - Post Discharge Activity
[2018-09-05] MEDS ORDERED: SODIUM CHLORIDE 0.9% 500 ML INFUS.BAG IV ONE ×2 (15:51→19:26)
[2018-09-05] MEDS ORDERED: HYDROmorphone HCL CARPU-JECT 1 MG/1 ML DISP.SYRIN IVPUSH ONE ×3 (15:51→19:05)
[2018-09-05 15:54] LABS: ALBUMIN 4.3 g/dl (3.5-5.0); ALK PHOS 71 U/L (32-92); ANION GAP 8 MMOL/L (8-16); BILIRUBIN,TOTAL 0.6 mg/dl (0.2-1.0); BLOOD UREA NITROGEN 26 mg/dl (7-18); CALCIUM 9.9 mg/dl (8.4-10.2); CHLORIDE 105 mmol/L (98-107); CO2 24 mmol/L (22-28); GLUCOSE,RANDOM 96 mg/dl (74-106); POTASSIUM 3.7 mmol/L (3.5-5.1); SGOT/AST 24 U/L (10-42); SGPT/ALT 17 U/L (10-40); SODIUM 137 mmol/L (136-145); TOT PROT 7.5 g/dl (6.4-8.3)
[2018-09-05] MEDS ORDERED: HYDROmorphone HCL CARPU-JECT 1 MG/1 ML DISP.SYRIN ONE ×3 (16:05→19:08)
[2018-09-05 16:57] LABS: ACTIVATED PTT 22.5 SECONDS (25.2-36.5)
[2018-09-05 17:01] LABS: INR 1.09 (0.82-1.09); PROTHROMBIN TIME (PATIENT) 12.2 SEC (10.2-13.0)
[2018-09-05] MEDS ORDERED: LIDOCAINE HCL 2% JELLY (5 ML/TUBE) ONE (19:11)
--- NOTE | 2018-09-05 19:59 | PDOC ---
*Physical Exam - Vital Signs Last Vital Signs Temp Pulse Resp BP Pulse Ox 97.8 F 67 17 118/72 98 09/05/18 19:23 09/05/18 19:23 09/05/18 19:23 09/05/18 19:23 09/05/18 19:23 ED Treatment Course - LABORATORY CBC & Chemistry Diagram: 09/05/18 15:36 09/05/18 15:36 - ADDITIONAL ORDERS Additional order review: Laboratory Results 09/05/18 09/05/18 09/05/18 16:19 16:19 16:19 PT with INR 12.2 INR 1.09 PTT (Actin FS) 22.5 L Sodium Potassium Chloride Carbon Dioxide Anion Gap BUN Creatinine Creat Clearance w eGFR Random Glucose Lactic Acid Calcium Total Bilirubin AST ALT Alkaline Phosphatase Total Protein Albumin Lipase 112 Blood Type O POSITIVE Antibody Screen Negative 09/05/18 09/05/18 16:19 15:36 PT with INR INR PTT (Actin FS) Sodium 137 Potassium 3.7 Chloride 105 Carbon Dioxide 24 Anion Gap 8 BUN 26 H Creatinine 1.0 Creat Clearance w eGFR 56.56 Random Glucose 96 Lactic Acid 0.8 Calcium 9.9 Total Bilirubin 0.6 AST 24 D ALT 17 D Alkaline Phosphatase 71 Total Protein 7.5 Albumin 4.3 Lipase Blood Type Antibody Screen 09/05/18 15:36 RBC 4.51 MCV 91.3 MCHC 32.9 RDW 13.6 MPV 8.1 Neutrophils % 75.0 Lymphocytes % 12.8 Monocytes % 9.7 Eosinophils % 1.1 Basophils % 1.4 - Medications Given in the ED: ED Medications Discontinued Medications Generic Name Dose Route Start Last Admin Trade Name Wisam PRN Reason Stop Dose Admin Hydromorphone HCl 1 mg 09/05/18 15:51 09/05/18 16:16 Dilaudid Injection - IVPUSH 09/05/18 15:52 1 mg ONCE ONE Administration Hydromorphone HCl 1 mg 09/05/18 16:57 09/05/18 17:03 Dilaudid Injection - IVPUSH 09/05/18 16:58 1 mg ONCE ONE Administration Hydromorphone HCl 1 mg 09/05/18 19:05 09/05/18 19:20 Dilaudid Injection - IVPUSH 09/05/18 19:06 1 mg ONCE ONE Administration Morphine Sulfate 4 mg 09/05/18 15:38 09/05/18 15:48 Morphine Injection - IVPUSH 09/05/18 15:39 4 mg ONCE ONE Administration Ondansetron HCl 4 mg 09/05/18 15:38 09/05/18 15:48 Zofran Injection IVPUSH 09/05/18 15:39 4 mg ONCE ONE Administration Ondansetron HCl 4 mg 09/05/18 19:21 09/05/18 19:24 Zofran Injection IVPUSH 09/05/18 19:22 4 mg ONCE ONE Administration Sodium Chloride 1,000 ml 09/05/18 15:51 09/05/18 16:16 Normal Saline - IV 09/05/18 15:52 1,000 ml ONCE ONE Administration Sodium Chloride 1,000 ml 09/05/18 19:26 09/05/18 19:27 Normal Saline - IV 09/05/18 19:27 1,000 ml ONCE ONE Administration *DC/Admit/Observation/Transfer Diagnosis at time of Disposition: Small bowel obstruction - Discharge Dispostion Condition at time of disposition: Guarded Decision to Admit order: Yes - Referrals Referrals: Sveta Badillo MD [Primary Care Provider] - - Patient Instructions - Post Discharge Activity
[2018-09-05 22:58] VITALS: BMI 25.7
--- NOTE | 2018-09-05 23:13 | HP ---
Admitting History and Physical - Admission Chief Complaint: cramping abdominal pain, chills and diaphoresis History of Present Illness: Patent with PMH of Lymphoma, hysterectomuy and intraabdominal adhesions s/p episodes of intestinal obstruction developed early in the morning acute abdominal pain cramp like associated with burning like sensation, nausea, vomiting, chills and diaphoresis. 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 She had repeated episodes of intestinal occlusion, the last one dated in February, Limitations to Obtaining History: No Limitations - Past Medical History Gastrointestinal: Yes: Other (intestinal occlusion) Heme/Onc: Yes: Other (Intra abdominal lymphoma in remission) Rheumatology: Yes: Fibromyalgia - Past Surgical History Past Surgical History: Yes: Hysterectomy - Smoking History Smoking history: Never smoked Have you smoked in the past 12 months: No Aproximately how many cigarettes per day: 0 - Alcohol/Substance Use Hx Alcohol Use: No History of Substance Use: reports: None - Social History History of Recent Travel: No Home Medications - Allergies Allergies/Adverse Reactions: Allergies Allergy/AdvReac Type Severity Reaction Status Date / Time clindamycin AdvReac Intermediate Nausea Verified 09/05/18 15:32 - Home Medications Home Medications: Ambulatory Orders Levothyroxine [Synthroid -] 75 mcg PO DAILY tablet 09/08/18 Pantoprazole Sodium [Protonix -] 40 mg PO DAILY #30 tablet.ec 09/08/18 Venlafaxine HCl ER [Effexor Xr -] 150 mg PO DAILY cap.er.24h 09/08/18 Venlafaxine HCl ER [Effexor Xr -] 150 mg PO DAILY #30 cap.er.24h 09/08/18 Review of Systems Unable to obtain ROS, reason: calm and in not acute dis - Review of Systems Constitutional: reports: Chills, Diaphoresis, Fever HENT: reports: No Symptoms Neck: reports: No Symptoms Cardiovascular: reports: No Symptoms Respiratory: reports: No Symptoms Gastrointestinal: reports: Abdominal Pain, Nausea, Vomiting. denies: Constipation, Vomiting Blood Physical Examination Vital Signs: Vital Signs Temperature 98 F 09/05/18 22:42 Pulse Rate 72 09/05/18 22:42 Respiratory Rate 18 09/05/18 22:42 Blood Pressure 135/85 09/05/18 22:42 O2 Sat by Pulse Oximetry (%) 95 09/05/18 22:42 Constitutional: Yes: Well Nourished, No Distress, Calm (examined after Dilaudid and Mrphine were administered) HENT: Yes: Atraumatic, Normocephalic Neck: Yes: Supple, Trachea Midline Cardiovascular: Yes: Regular Rate and Rhythm, S1 Respiratory: Yes: Regular, CTA Bilaterally Gastrointestinal: Yes: Soft, Distention, Hypoactive Bowel Sounds, Tenderness, Tenderness, Epigastrium, Vomiting, Other (ng tube in place, draining green contents). No: Tenderness, Rebound ...Rectal Exam: Yes: Deferred Extremities: No: Calf Tenderness Edema: No Peripheral Pulses WNL: Yes Neurological: Yes: Alert, Oriented Psychiatric: Yes: Alert, Oriented Labs: CBC, BMP 09/05/18 15:36 09/05/18 15:36 Imaging - Results X-ray: Other (Ct scan of augie abdomne: SBO, intestinal ischemia) Problem List - Problems (1) Small bowel obstruction Assessment/Plan: NG tube for intermittent suction, Protonix iv, iv fluids, Dilaudid prn for pain NPO CBC, CMP in am surgical consult Code(s): K56.69 - OTHER INTESTINAL OBSTRUCTION * DO NOT USE * (2) Leukocytosis Assessment/Plan: reactive? blood cultures, start Ancef CBC in am Code(s): D72.829 - ELEVATED WHITE BLOOD CELL COUNT, UNSPECIFIED (3) Intestinal ischemia Assessment/Plan: NPO and monitor CBC Code(s): K55.9 - VASCULAR DISORDER OF INTESTINE, UNSPECIFIED
[2018-09-06] MEDS: D5-1/2NS+10 MEQ KCL - 10 MEQ/1,000 ML INFUS.BAG IV SCH ×2 (00:03→14:40)
[2018-09-06] MEDS: ONDANSETRON 4 MG/2 ML VIAL IVPUSH PRN ×2 (00:43→12:02)
[2018-09-06] MEDS: CEFAZOLIN 1 GM/D5W 1 GM/50 ML BAG IVPB SCH ×2 (02:54→09:14)
[2018-09-06 03:22] LABS: URINE APPEARANCE CLEAR; URINE BILIRUBIN NEGATIVE (<2.0 mg/dL); URINE COLOR LTYELLOW; URINE GLUCOSE (UA) NEGATIVE (NEGATIVE); URINE KETONE NEGATIVE (NEGATIVE); URINE LEUK ESTERASE NEGATIVE (NEGATIVE); URINE NITRITE NEGATIVE (NEGATIVE); URINE PROTEIN NEGATIVE (NEGATIVE); URINE UROBILINOGEN NEGATIVE mg/dL (0.2-1.0)
[2018-09-06] MEDS: HYDROmorphone HCl 2 MG/ML VIAL IVPUSH PRN ×2 (04:26→12:02)
[2018-09-06 06:54] LABS: BASO % 0.4 % (0-2.0); HEMATOCRIT 33.5 % (32.4-45.2); HEMOGLOBIN 11.1 GM/dL (10.7-15.3); LYMPH % 16.4 % (8-40); MCH 30.2 pg (25.7-33.7); MCHC 33.2 g/dl (32.0-36.0); MEAN PLT VOLUME 8.3 fl (7.5-11.1); MONO % 7.9 % (3.8-10.2); NEUT % 73.3 % (42.8-82.8); PLATELET COUNT 233 K/MM3 (134-434); RBC 3.68 M/mm3 (3.60-5.2); RDW 14.8 % (11.6-15.6); WHITE BLOOD COUNT 6.6 K/mm3 (4.0-10.0)
[2018-09-06 08:50] LABS: ALBUMIN 3.2 g/dl (3.4-5.0); ALK PHOS 61 U/L (45-117); ANION GAP 6 MMOL/L (8-16); BILIRUBIN,TOTAL 0.2 mg/dL (0.2-1); BLOOD UREA NITROGEN 21 mg/dL (7-18); CALCIUM 8.2 mg/dL (8.5-10.1); CHLORIDE 113 mmol/L (98-107); CO2 26 mmol/L (21-32); CREATININE 0.7 mg/dL (0.55-1.3); GLUCOSE,RANDOM 111 mg/dL (74-106); POTASSIUM 3.6 mmol/L (3.5-5.1); SGOT/AST 17 U/L (15-37); SGPT/ALT 18 U/L (13-61); SODIUM 145 mmol/L (136-145); TOT PROT 6.1 g/dl (6.4-8.2)
--- NOTE | 2018-09-06 09:06 | EKG ---
Test Reason : Blood Pressure : / mmHG Vent. Rate : 062 BPM Atrial Rate : 062 BPM P-R Int : 150 ms QRS Dur : 092 ms QT Int : 472 ms P-R-T Axes : 073 077 057 degrees QTc Int : 479 ms NORMAL SINUS RHYTHM BIATRIAL ENLARGEMENT ABNORMAL ECG WHEN COMPARED WITH ECG OF 05-FEB-2017 23:29, NO SIGNIFICANT CHANGE WAS FOUND Confirmed by GAVIN SMITH, LORA ([id number]) on 09/06/2018 9:06:26 AM Referred By: DR GAONA Confirmed By:LORA ALONSO MD
[2018-09-06] MEDS: PANTOPRAZOLE SODIUM 40 MG VIAL IVPUSH SCH (09:14)
--- NOTE | 2018-09-06 10:35 | CONSULT ---
Consult Consult Specialty:: Surgery Reason for Consultation:: Small bowel obstruction - History of Present Illness Chief Complaint: abdominal pain History of Present Illness: 58 yo F w a hx of HCL, lymphoma, multiple abdominal surgeries, multiple SBO's presents to the ED with diffuse abdominal pain. CT at [facility] ED showed SBO. Had open surgery for lymph node biopsy for lymphoma, laparoscopic hysterectomy, and laparoscopic lysis of adhesions in 2012 for recurrent partial SBO at [facility]. Since then patient has had several episodes of partial SBO the last one in 2017 managed non-operatively. She denies any chest pain, SOB, difficulty breathing, headache, blurry vision, neck pain, back pain, dysuria, frequency, urgency, or recent fevers. Currently has less pain, has not passed flatus or stool. NGT drainage = 900 since admission. FUA this am showed resolution of SBO. - History Source History Provided By: Patient Limitations to Obtaining History: No Limitations - Past Medical History Gastrointestinal: Yes: Other (intestinal occlusion) Heme/Onc: Yes: Other (lymphoma) Rheumatology: Yes: Fibromyalgia - Past Surgical History Past Surgical History: Yes: Hysterectomy Additional Surgical History: Open intra-abdominal lymphnode biopsy, laparoscopic lysis of adhesions - Alcohol/Substance Use Hx Alcohol Use: No History of Substance Use: reports: None - Smoking History Smoking history: Never smoked Have you smoked in the past 12 months: No Aproximately how many cigarettes per day: 0 - Social History History of Recent Travel: No Home Medications - Allergies Allergies/Adverse Reactions: Allergies Allergy/AdvReac Type Severity Reaction Status Date / Time clindamycin AdvReac Intermediate Nausea Verified 09/05/18 15:32 - Home Medications Home Medications: Ambulatory Orders Cholecalciferol (Vitamin D3) [Vitamin D3] 1,000 unit PO DAILY capsule 11/19/12 Review of Systems - Review of Systems Eyes: reports: No Symptoms HENT: reports: No Symptoms Neck: reports: No Symptoms Cardiovascular: reports: No Symptoms Respiratory: reports: No Symptoms Gastrointestinal: reports: Abdominal Pain, Constipation Musculoskeletal: reports: No Symptoms Physical Exam Vital Signs: Vital Signs Temperature 98.3 F 09/06/18 10:00 Pulse Rate 58 L 09/06/18 10:00 Respiratory Rate 18 09/06/18 10:00 Blood Pressure 116/68 09/06/18 10:00 O2 Sat by Pulse Oximetry (%) 97 09/06/18 09:00 Constitutional: Yes: Well Nourished, No Distress Eyes: Yes: WNL HENT: Yes: Normocephalic Neck: Yes: Supple Cardiovascular: Yes: Regular Rate and Rhythm Respiratory: Yes: CTA Bilaterally Gastrointestinal: Yes: Soft, Tenderness (at elana-umbilical area), Other (upper midline scar) ...Rectal Exam: Yes: Deferred Labs: CBC, BMP 09/06/18 05:15 09/06/18 05:15 Imaging - Results Chest X-ray: Image Reviewed X-ray: Report Reviewed, Image Reviewed (FUA) Cat Scan: Report Reviewed, Image Reviewed Problem List - Problems (1) Small bowel obstruction Assessment/Plan: Resolving partial SBO Clamp NGT and check residuals. D/C if residuals are low. ice chips OOB, IS, GI, and DVT prophylaxis Code(s): K56.69 - OTHER INTESTINAL OBSTRUCTION * DO NOT USE *
--- NOTE | 2018-09-06 15:27 | PN ---
Progress Note, Physician Chief Complaint: abdominal pain and vomiting History of Present Illness: 58yo female admitted with SBO, feels better. The patient had an NG tube inserted in ER and drained in total 1000cc green gastric contents Today she did not vomit. The abdominal pain is persisting but it is dull and not sharp as it used to be. The patient had no fever, and did not pass gas or stool. - Current Medication List Current Medications: Active Medications Hydromorphone HCl (Dilaudid Vial -) 1 mg IVPUSH Q4H PRN PRN Reason: PAIN LEVEL 6-10 Last Admin: 09/06/18 12:02 Dose: 1 mg Potassium Chloride/Dextrose/Sod Cl (D5-1/2ns+10 Meq Kcl -) 10 meq in 1,000 mls @ 75 mls/hr IV ASDIR HERI Last Admin: 09/06/18 14:40 Dose: 75 mls/hr Ondansetron HCl (Zofran Injection) 4 mg IVPUSH Q4H PRN PRN Reason: NAUSEA AND/OR VOMITING Last Admin: 09/06/18 12:02 Dose: 4 mg Pantoprazole Sodium (Protonix Iv) 40 mg IVPUSH DAILY [facility] Last Admin: 09/06/18 09:14 Dose: 40 mg Venlafaxine HCl (Effexor Xr -) 150 mg PO DAILY [facility] - Objective Vital Signs: Vital Signs Temperature 98.6 F 09/06/18 13:48 Pulse Rate 62 09/06/18 13:48 Respiratory Rate 20 09/06/18 13:48 Blood Pressure 131/66 09/06/18 13:48 O2 Sat by Pulse Oximetry (%) 97 09/06/18 09:00 patient seen, note to follow Constitutional: Yes: No Distress, Calm Eyes: Yes: Conjunctiva Clear, EOM Intact HENT: Yes: Atraumatic, Normocephalic Neck: Yes: Supple, Trachea Midline Cardiovascular: Yes: Regular Rate and Rhythm, S1, S2 Respiratory: Yes: Regular Gastrointestinal: Yes: Soft, Abdomen, Obese, Tenderness (in the right upper quadrant). No: Normal Bowel Sounds, Splenomegaly ...Rectal Exam: Yes: Deferred Edema: No Peripheral Pulses WNL: Yes Integumentary: Yes: WNL Neurological: Yes: Alert, Oriented Psychiatric: Yes: Alert, Oriented Labs: CBC, BMP 09/06/18 05:15 09/06/18 05:15 INR, PTT INR 1.09 (0.82-1.09) 09/05/18 16:19 Problem List - Problems (1) Small bowel obstruction Assessment/Plan: continue NG tube for intermittent suction, Protonix iv, iv fluids, Dilaudid prn for pain continue NPO AXR showing air fluids level, no obstruction Code(s): K56.69 - OTHER INTESTINAL OBSTRUCTION * DO NOT USE * (2) Leukocytosis Assessment/Plan: reactive leukocytosis? blood cultures ordered and results are pending, d/c Ancef Code(s): D72.829 - ELEVATED WHITE BLOOD CELL COUNT, UNSPECIFIED (3) Intestinal ischemia Assessment/Plan: by CT scan, continue NPO Code(s): K55.9 - VASCULAR DISORDER OF INTESTINE, UNSPECIFIED
[2018-09-06] MEDS ORDERED: VENLAFAXINE HCL 150 MG E.R. CAPSULE PO SCH (15:30)
[2018-09-07] MEDS: D5-1/2NS+10 MEQ KCL - 10 MEQ/1,000 ML INFUS.BAG IV SCH ×2 (05:45→16:59)
[2018-09-07 08:17] LABS: BASO % 0.6 % (0-2.0); EOS % 3.6 % (0-4.5); HEMATOCRIT 30.2 % (32.4-45.2); HEMOGLOBIN 9.9 GM/dL (10.7-15.3); LYMPH % 29.6 % (8-40); MCH 29.4 pg (25.7-33.7); MCHC 32.7 g/dl (32.0-36.0); MEAN CELL VOLUME 89.9 fl (80-96); MEAN PLT VOLUME 8.5 fl (7.5-11.1); MONO % 8.8 % (3.8-10.2); NEUT % 57.4 % (42.8-82.8); PLATELET COUNT 209 K/MM3 (134-434); RBC 3.36 M/mm3 (3.60-5.2); RDW 14.4 % (11.6-15.6); WHITE BLOOD COUNT 4.6 K/mm3 (4.0-10.0)
[2018-09-07 08:53] LABS: ALBUMIN 2.8 g/dl (3.4-5.0); ALK PHOS 52 U/L (45-117); ANION GAP 7 MMOL/L (8-16); BILIRUBIN,TOTAL 0.3 mg/dL (0.2-1); BLOOD UREA NITROGEN 13 mg/dL (7-18); CHLORIDE 110 mmol/L (98-107); CO2 25 mmol/L (21-32); CREATININE 0.7 mg/dL (0.55-1.3); GLUCOSE,RANDOM 93 mg/dL (74-106); POTASSIUM 3.6 mmol/L (3.5-5.1); SGOT/AST 15 U/L (15-37); SGPT/ALT 14 U/L (13-61); SODIUM 142 mmol/L (136-145); TOT PROT 5.5 g/dl (6.4-8.2)
[2018-09-07] MEDS: VENLAFAXINE HCL 75 MG E.R. CAPSULES (FP) PO SCH (09:21)
[2018-09-07] MEDS: PANTOPRAZOLE SODIUM 40 MG VIAL IVPUSH SCH (09:21)
--- NOTE | 2018-09-07 14:56 | PN ---
Progress Note, Physician Chief Complaint: abdominal pain and vomiting History of Present Illness: 58yo female admitted with SBO, and suspicion of intestinal ischemia, is day 3 post admission, started liquid diet and tolerated it well. Today she received pain medication Dilaudid in am, she is passing gas but did not have a bowel movement. There was no fever. - Current Medication List Current Medications: Active Medications Potassium Chloride/Dextrose/Sod Cl (D5-1/2ns+10 Meq Kcl -) 10 meq in 1,000 mls @ 75 mls/hr IV ASDIR [facility] Last Admin: 09/07/18 05:45 Dose: 75 mls/hr Ondansetron HCl (Zofran Injection) 4 mg IVPUSH Q4H PRN PRN Reason: NAUSEA AND/OR VOMITING Last Admin: 09/06/18 12:02 Dose: 4 mg Pantoprazole Sodium (Protonix Iv) 40 mg IVPUSH DAILY [facility] Last Admin: 09/07/18 09:21 Dose: 40 mg Venlafaxine HCl (Effexor Xr -) 150 mg PO DAILY [facility] Last Admin: 09/07/18 09:21 Dose: 150 mg - Objective Vital Signs: Vital Signs Temperature 98.8 F 09/07/18 13:27 Pulse Rate 60 09/07/18 13:27 Respiratory Rate 18 09/07/18 13:27 Blood Pressure 118/66 09/07/18 13:27 O2 Sat by Pulse Oximetry (%) 96 09/07/18 09:00 Constitutional: Yes: No Distress, Calm Eyes: Yes: Conjunctiva Clear, EOM Intact HENT: Yes: Atraumatic, Normocephalic Neck: Yes: Supple, Trachea Midline Cardiovascular: Yes: Regular Rate and Rhythm, S1, S2 Respiratory: Yes: CTA Bilaterally Gastrointestinal: Yes: Normal Bowel Sounds, Soft, Abdomen, Obese, Tenderness, Epigastrium. No: Hepatomegaly, Palpable Mass, Splenomegaly, Tenderness, Rebound , Vomiting ...Rectal Exam: Yes: Deferred Genitourinary: Yes: WNL Musculoskeletal: Yes: WNL Extremities: No: Calf Tenderness Edema: No Peripheral Pulses WNL: Yes Neurological: Yes: Alert, Oriented Psychiatric: Yes: Alert, Oriented Labs: CBC, BMP 09/07/18 07:00 09/07/18 07:00 INR, PTT INR 1.09 (0.82-1.09) 09/05/18 16:19 Problem List - Problems (1) Small bowel obstruction Assessment/Plan: NG tube for intermittent suction was discontinued , continue Protonix iv, and iv fluids, Dilaudid prn for pain continue liquid diet repeat AXR in am Code(s): K56.69 - OTHER INTESTINAL OBSTRUCTION * DO NOT USE * (2) Leukocytosis Assessment/Plan: reactive? resolved blood cultures were negative, d/c Ancef and continue monitoring Code(s): D72.829 - ELEVATED WHITE BLOOD CELL COUNT, UNSPECIFIED (3) Intestinal ischemia Assessment/Plan: by CT scan, clinically doing well continue monitoring for another [address] scan as an outpatient Code(s): K55.9 - VASCULAR DISORDER OF INTESTINE, UNSPECIFIED
[2018-09-08 06:51] LABS: BASO % 0.7 % (0-2.0); EOS % 4.2 % (0-4.5); HEMATOCRIT 30.3 % (32.4-45.2); LYMPH % 32.6 % (8-40); MCH 29.7 pg (25.7-33.7); MCHC 32.9 g/dl (32.0-36.0); MEAN CELL VOLUME 90.1 fl (80-96); MEAN PLT VOLUME 8.5 fl (7.5-11.1); MONO % 9.6 % (3.8-10.2); NEUT % 52.9 % (42.8-82.8); PLATELET COUNT 201 K/MM3 (134-434); RBC 3.36 M/mm3 (3.60-5.2); RDW 14.2 % (11.6-15.6); WHITE BLOOD COUNT 5.3 K/mm3 (4.0-10.0)
[2018-09-08 08:29] VITALS: BP 143/76; PULSE 53; TEMP 98
[2018-09-08] MEDS: VENLAFAXINE HCL 75 MG E.R. CAPSULES (FP) PO SCH (09:21)
[2018-09-08] MEDS: PANTOPRAZOLE SODIUM 40 MG VIAL IVPUSH SCH (09:21)
[2018-09-08] MEDS ORDERED: PANTOPRAZOLE 40 MG TABLET (FP) PO SCH ×2 (10:30→22:00)
[2018-09-08 12:32] LABS: ALBUMIN 2.8 g/dl (3.4-5.0); ALK PHOS 53 U/L (45-117); ANION GAP 7 MMOL/L (8-16); BILIRUBIN,TOTAL 0.2 mg/dL (0.2-1); BLOOD UREA NITROGEN 8 mg/dL (7-18); CALCIUM 8.2 mg/dL (8.5-10.1); CHLORIDE 110 mmol/L (98-107); CO2 28 mmol/L (21-32); CREATININE 0.7 mg/dL (0.55-1.3); GLUCOSE,RANDOM 88 mg/dL (74-106); POTASSIUM 3.7 mmol/L (3.5-5.1); SGOT/AST 15 U/L (15-37); SGPT/ALT 13 U/L (13-61); SODIUM 145 mmol/L (136-145); TOT PROT 5.4 g/dl (6.4-8.2)
--- NOTE | 2018-09-08 14:11 | DS ---
Physical Examination Vital Signs: Vital Signs Temperature 98 F 09/08/18 08:28 Pulse Rate 53 L 09/08/18 08:28 Respiratory Rate 18 09/08/18 09:00 Blood Pressure 143/76 09/08/18 08:28 O2 Sat by Pulse Oximetry (%) 98 09/08/18 09:00 Constitutional: Yes: No Distress, Calm Eyes: Yes: Conjunctiva Clear, EOM Intact HENT: Yes: Atraumatic, Normocephalic Neck: Yes: Supple, Trachea Midline Cardiovascular: Yes: Regular Rate and Rhythm, S1, S2 Respiratory: Yes: Regular, CTA Bilaterally Gastrointestinal: Yes: Normal Bowel Sounds (in all quadrants). No: Hepatomegaly , Splenomegaly ...Rectal Exam: Yes: Deferred Breast(s): Yes: WNL Musculoskeletal: Yes: WNL Extremities: No: Calf Tenderness Edema: No Peripheral Pulses WNL: Yes Neurological: Yes: Alert, Oriented Psychiatric: Yes: Alert, Oriented Labs: CBC, BMP 09/08/18 05:25 09/08/18 05:25 Discharge Summary Reason For Visit: SMALL BOWEL OBSTRUCTION Current Active Problems Leukocytosis (Acute) Small bowel obstruction (Acute) Hospital Course: Patient is able to eat and ate an egg which she tolerated well. The patient did not have a bowel movements since admission but is passing gas. She is complaining of abdominal pain in the right upper quadrant with manual pressure, and denies any nausea. AN AXR was performed today and it showed no obstruction and increased coprostasis. The patient will be relised today. She will follow up with her surgeon. I advised full liquid diet in small amounts, full liquid diet, follow up with MD next week: myself or the surgeon. Discharge home today. Condition: Fair - Instructions Referrals: Sveta Badillo MD [Primary Care Provider] - Disposition: HOME - Home Medications Comprehensive Discharge Medication List: Ambulatory Orders Cholecalciferol (Vitamin D3) [Vitamin D3] 1,000 unit PO DAILY capsule 11/19/12
[2018-09-09] MEDS ORDERED: LEVOTHYROXINE NA 75 MCG TABLET (FP) PO SCH (10:00)
== END 2018-09-08 14:53 | disposition home or self-care (01) | DRG 389 ==
LOC: FER 15:18 → J7W 21:20
PROVIDERS: ADMIT Internal Medicine; ATTEND Internal Medicine
PROC: 0D9670Z Drainage of Stomach with Drainage Device, Via Natural or Artificial Opening (ICD-10-PCS; principal; 2018-09-05)
DX: K56.699 Other intestinal obstruction unspecified as to partial versus complete obstruction (principal); K55.9 Vascular disorder of intestine, unspecified; D72.829 Elevated white blood cell count, unspecified
CPT/HCPCS: 36415; 71045-TC-FY; 74019-TC-FY; 74177-TC; 80053; 81003; 83605; 83690; 85025; 85610; 85730; 86850; 86900; 86901; 87040; 93005; 99285-25

== ENCOUNTER 2020-04-25 16:33 | Emergency (ER) | payer OTHER ==
[2020-04-25 16:53] VITALS: BP 130/85; PULSE 71; TEMP 98.2; BMI 25.0
[2020-04-25] MEDS ORDERED: traMADol HCL 50 MG TABLET PO ONE (17:00)
[2020-04-25] MEDS ORDERED: DEXAMETHASONE SOD PHOSPHATE 10 MG/1 ML VIAL IM ONE (17:00)
[2020-04-25] MEDS ORDERED: DEXAMETHASONE SOD PHOSPHATE 10 MG/1 ML VIAL ONE (17:03)
[2020-04-25] MEDS ORDERED: traMADol HCL 50 MG TABLET ONE (17:03)
--- NOTE | 2020-04-25 17:13 | PDOC ---
Documentation entered by Quincy Hernandez SCRIBE, acting as scribe for Christiano Rodriguez MD. Christiano Rodriguez MD: This documentation has been prepared by the David mckoy Angel, SCRIBE, under my direction and personally reviewed by me in its entirety. I confirm that the documentation accurately reflects all work, treatment, procedures, and medical decision making performed by me. History of Present Illness - General Chief Complaint: Back Pain Stated Complaint: LEFT LOWER BACK & HIP PAIN History Source: Patient Exam Limitations: No Limitations - History of Present Illness Initial Comments: 04/25/20 17:10 The patient is a 60 year old female with a significant past medical history of lymphoma, multiple abdominal surgeries, multiple SBO's who presents to ED with left hip pain that radiates to her left lower back and left leg since last night. The patient states during the night she was woken up by pain in her left lower back and left hip. The patient applied to a heating pad with no relief. The patient states at 11am this morning she took motrin, tylenol and naproxen with no relief. The patient states the pain worsens during movements such as bending over and standing/walking. 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 The patient denies any recent falls, trauma. Denies SOB, chest pain or abdominal pain. Denies weaknes s/numbness in either leg. No bowel or bladder incontinence. Past History - Medical History Allergies/Adverse Reactions: Allergies Allergy/AdvReac Type Severity Reaction Status Date / Time clindamycin AdvReac Intermediate Nausea Verified 09/05/18 15:32 Home Medications: Ambulatory Orders Acetaminophen [Tylenol Arthritis] 1,300 mg PO ONCE 04/25/20 Bupropion HCl [Wellbutrin Sr] 150 mg PO DAILY 04/25/20 Ibuprofen [Advil -] 400 mg PO ONCE 04/25/20 Naproxen 250 mg PO ONCE 04/25/20 predniSONE [Deltasone -] 40 mg PO DAILY #4 tablet 04/25/20 Anemia: No Asthma: No Cancer: Yes (INTESTINAL LYMPHOMA) Cardiac Disorders: No CVA: No COPD: No CHF: No Dementia: No Diabetes: No GI Disorders: Yes (SMALL BOWEL OBSTRUCTION, IBF) Disorders: No HTN: No Hypercholesterolemia: No Liver Disease: No Seizures: No Thyroid Disease: Yes (THYROID NODULE) - Surgical History Abdominal Surgery: Yes (INTESTINAL BX & LYMPH NODES) Appendectomy: No Cardiac Surgery: No Cholecystectomy: No Lung Surgery: No Neurologic Surgery: No Orthopedic Surgery: No - Immunization History Immunization Up to Date: No - Psycho-Social/Smoking History Smoking Status: No Smoking History: Never smoked Have you smoked in the past 12 months: No Number of Cigarettes Smoked Daily: 0 Review of Systems - Review of Systems Able to Perform ROS?: Yes Comments:: 04/25/20 17:10 GENERAL/CONSTITUTIONAL: No fever or chills. No weakness. HEAD, EYES, EARS, NOSE AND THROAT: No change in vision. No ear pain or discharge. No sore throat. CARDIOVASCULAR: No chest pain, no shortness of breath, no loss of consciousness RESPIRATORY: No cough, wheezing, or hemoptysis. GASTROINTESTINAL: No nausea, vomiting, diarrhea or constipation. GENITOURINARY: No dysuria, frequency, or change in urination. MUSCULOSKELETAL: + left hip pain. No neck pain. SKIN: No rash NEUROLOGIC: No vertigo, no change in strength/sensation. ENDOCRINE: No increased thirst. No abnormal weight change. HEMATOLOGIC/LYMPHATIC: No anemia, easy bleeding, or history of blood clots. ALLERGIC/IMMUNOLOGIC: No hives or skin allergy. *Physical Exam - Physical Exam 04/25/20 17:15 "GENERAL: Awake, alert, and fully oriented, in no acute distress. HEAD: No signs of trauma EYES: PERRLA, EOMI, sclera anicteric, conjunctiva clear ENT: Auricles normal inspection, hearing grossly normal, nares patent, oropharynx clear without exudates. Moist mucosa NECK: Nontender, no stepoffs, Normal ROM, supple, no lymphadenopathy, JVD, or masses LUNGS: Breath sounds equal, clear to auscultation bilaterally. No wheezes, and no crackles HEART: Regular rate and rhythm, normal S1 and S2, no murmurs, rubs or gallops ABDOMEN: Soft, nontender, normoactive bowel sounds. No guarding, no rebound. No masses EXTREMITIES: + TTP over L hip, Full active ROM, no edema. No clubbing or cyanosis. No cords, erythema, or tenderness BACK: No midline tenderness, no stepoffs NEUROLOGICAL: Cranial nerves II through XII intact. 5/5 strength and sensation in all extremities, Normal speech, normal gait, normal cerebellar function SKIN: Warm, Dry, normal turgor, no rashes or lesions noted. Medical Decision Making - Medical Decision Making 04/25/20 17:16 60 F with L hip pain. Suspect bursitis. Pt with no neuro deficits to suggest cord compression/cauda equina. Possible sciatic nerve pain. - Steroids, tramadol - F/u ortho Pt is well appearing, with normal vitals. Clinically stable for DC at this time. I discussed the physical exam findings, ancillary test results and final diagnoses with the patient. I answered all of the patient's questions. The patient was satisfied with the care received and felt comfortable with the discharge plan and treatment plan. The patient agrees to follow up with the primary care physician within 24-72 hours. Discharge - Discharge Information Problems reviewed: Yes Clinical Impression/Diagnosis: Hip pain Condition: Good Disposition: HOME - Additional Discharge Information Prescriptions: predniSONE [Deltasone -] 40 mg PO DAILY #4 tablet - Follow up/Referral Referrals: Lexie Watts MD [Primary Care Provider] - Christiano Kendall MD [Staff Physician] - - Patient Discharge Instructions Patient Printed Discharge Instructions: DI for Hip Pain Additional Instructions: Make an appointment with an orthopedist within 1 week for further evaluation of your hip pain. Call the number provided to make an appointment. You may need a MRI to further evaluate your pain. If you experience any worsening pain, weakness, numbness, fevers, or any other concerning symptoms, return to the ER immediately. - Post Discharge Activity
== END 2020-04-25 17:30 | disposition home or self-care (01) ==
LOC: FER 16:33
PROC: 3E023GC Introduction of Other Therapeutic Substance into Muscle, Percutaneous Approach (ICD-10-PCS; principal; 2020-04-25)
DX: M25.552 Pain in left hip (principal)
CPT/HCPCS: 99284-25; J1100

== ENCOUNTER 2020-07-05 19:17 | Emergency (ER) | payer OTHER ==
--- NOTE | 2020-07-05 19:20 | PDOC ---
History of Present Illness - General Chief Complaint: Lightheaded Stated Complaint: Dizziness Time Seen by Provider: 07/05/20 19:20 - History of Present Illness Initial Comments: This 60-year-old woman with a history of intestinal lymphoma (in remission), multiple abdominal procedures and subsequent episodes of SBO presents with 1 day history of vertigo with changes in her head position and right-sided headache. Patient states that she chronically clenches her jaws and occasionally this results in headache pain. Today, she developed both positional vertigo and headache. Patient states that she has had vertigo similar to this in the past (many years ago) which was treated with medication but none recently. No recent head trauma, fever/chills, upper respiratory infection symptoms or ear pain. No facial weakness, extremity weakness, difficulty speaking or swallowing. She has had mild balance problems today since she redeveloped vertigo. Medications as noted below Allergy: Clindamycin Non-smoker; no daily alcohol or other recreational drug use Past History - Medical History Allergies/Adverse Reactions: Allergies Allergy/AdvReac Type Severity Reaction Status Date / Time clindamycin AdvReac Intermediate Nausea Verified 09/05/18 15:32 Home Medications: Ambulatory Orders Acetaminophen [Tylenol Arthritis] 1,300 mg PO ONCE 04/25/20 Bupropion HCl [Wellbutrin Sr] 150 mg PO DAILY 04/25/20 Ibuprofen [Advil -] 400 mg PO ONCE 04/25/20 Naproxen 250 mg PO ONCE 04/25/20 predniSONE [Deltasone -] 40 mg PO DAILY #4 tablet 04/25/20 Diazepam [Valium] 5 mg PO Q12H PRN #10 tablet MDD 2 tabs 07/05/20 Pantoprazole Sodium [Protonix] 40 mg PO DAILY 07/05/20 Anemia: No Asthma: No Cancer: Yes (INTESTINAL LYMPHOMA) Cardiac Disorders: No CVA: No COPD: No CHF: No Dementia: No Diabetes: No GI Disorders: Yes (SMALL BOWEL OBSTRUCTION, IBF) Disorders: No HTN: No Hypercholesterolemia: No Liver Disease: No Seizures: No Thyroid Disease: Yes (THYROID NODULE) - Surgical History Abdominal Surgery: Yes (INTESTINAL BX & LYMPH NODES) Appendectomy: No Cardiac Surgery: No Cholecystectomy: No Lung Surgery: No Neurologic Surgery: No Orthopedic Surgery: No - Immunization History Immunization Up to Date: No - Psycho-Social/Smoking History Smoking Status: No Smoking History: Never smoked Have you smoked in the past 12 months: No Number of Cigarettes Smoked Daily: 0 Review of Systems - Review of Systems Able to Perform ROS?: Yes Comments:: 12 point review of systems is negative except for what is noted in the history of present illness *Physical Exam - Physical Exam GENERAL: The patient is awake, alert, and fully oriented, in no acute distress. HEAD: Normal with no signs of trauma. EYES: Pupils equal, round and reactive to light, extraocular movements intact, sclera anicteric, conjunctiva clear with no pallor. No abnormal nystagmus present ENT: moist mucous membranes. Ears normal, nares patent, oropharynx clear without exudates. NECK: Normal range of motion, supple without lymphadenopathy, JVD, or masses. LUNGS: Breath sounds equal, clear to auscultation bilaterally. No wheeze/crackles. HEART: Regular rate and rhythm, normal S1 and S2 without murmur or rub. ABDOMEN: Soft/nontender/nondistended. BS wnl. No guarding or rebound. No palpable masses. No hepatosplenomegaly. EXTREMITIES: Normal range of motion, no edema. No clubbing or cyanosis. No cords, erythema, or tenderness. NEUROLOGICAL: Cranial nerves II through XII grossly intact. Normal speech, gait not tested; moving all 4 extremities equally PSYCH: Normal mood, normal affect. SKIN: Warm, Dry, normal turgor, no rashes or lesions noted. ED Treatment Course - LABORATORY CBC & Chemistry Diagram: 07/05/20 20:10 07/05/20 19:50 Medical Decision Making - Medical Decision Making As noted above, this 60-year-old woman presents with 1 day history of vertigo, clearly related to movement of her head (feels vertigo when she moves her head to the right.). She also notes right jaw clenching and right sided headache. She was referred to the ER for CT by Dr. Han who is covering for her PMD, Dr. Levin. Exam as noted above Noncontrast head CT performed: Interpretation by Dr. Boswell of the radiology staffno evidence of acute intracranial pathology CBC, chemistry profile and urinalysis was sent: Other than mild decrease in sodium and potassium (131 and 3.3 respectively), laboratory evaluation is essentially normal. The patient states that she had been drinking large amounts of water earlier today, which may have resulted in minimal hyponatremia/hypokalemia. The patient's vertigo sensation is clearly positional: When her head is moved to the right, she has onset of symptoms. Meclizine 50 mg given. After approximately 45 minutes, patient states that she still feels the vertigo with head movement. Valium 5 mg orally ordered. Patient reports marked relief after Valium 5 mg. Small (#10) prescription of Valium 5 mg sent to her pharmacy to be used as needed for recurrent vertigo. Patient understands that this medication may make her very somnolent; it should not be used if she needs her full attention for activities such as driving. Patient should return to the ER if she has persistent severe vertigo or develops nausea/vomiting. Meanwhile, she should follow-up with her general medical doctor within 2 to 3 days. Discharge - Discharge Information Problems reviewed: Yes Clinical Impression/Diagnosis: Vertigo Condition: Improved Disposition: HOME - Additional Discharge Information Prescriptions: Diazepam [Valium] 5 mg PO Q12H PRN #10 tablet MDD 2 tabs PRN Reason: Vertigo - Follow up/Referral - Patient Discharge Instructions Patient Printed Discharge Instructions: Benign Paroxysmal Positional Vertigo Additional Instructions: Rest; avoid strenuous activities for the next few days Valium 5 mg up to twice a day and as needed for vertigo Return to ER if you develop persistent vertigo or nausea/vomiting Follow-up with your general medical doctor within the next 2 to 3 days - Post Discharge Activity
--- OUTSIDE RECORDS SUMMARY | 2020-07-05 19:24 | XMS ---
:1960 Author Organization [facility] Care Team Providers Name Role Phone [facility], COVID Unavailable Unavailable JUDITH MCFADDEN Unavailable Unavailable Elsy ([facility] COVID)Damir DO NOT EDIT Unavail able Unavailable Re-disclosure Warning The records that you are about to access may contain information from federally- assisted alcohol or drug abuse programs. If such information is present, then the following federally mandated warning applies: This information has been disclosed to you from records protected by federal confidentiality rules (42 CFR part 2). The federal rules prohibit you from making any further disclosure of this information unless further disclosure is expressly permitted by the written consent of the person to whom it pertains or as otherwise permitted by 42 CFR part 2. A general authorization for the release of medical or other information is NOT sufficient for this purpose. The Federal rules restrict any use of the information to criminally investigate or prosecute any alcohol or drug abuse patient.The records that you are about to access may contain highly sensitive health information, the redisclosure of which is protected by Article 27-F of the [facility] Public Health law. If you continue you may haveaccess to information: Regarding HIV / AIDS; Provided by facilities licensed or operated by the [facility] Office of Mental Health; or Provided by the [facility] Office for People With Developmental Disabilities. If such information is present, then the following [facility] mandated warning applies: This information has been disclosed to you from confidential records which are protected by state law. State law prohibits you from making any further disclosure of this information without the specific written consent of the person to whom it pertains, or as otherwise permitted by law. Any unauthorized further disclosure in violation of state law may result in a fine or prison sentence or both. A general authorization for the release of medical or other information is NOT sufficient authorization for further disclosure. Encounters Encounter Providers Location Date Indications Data Source(s ) Outpatient Attender: Damir 05/18/2020 [facility] ([facility] 03:46:00 PM [place] COVID) EDT MDConsultant: COVID [facility] Staff Outpatient Attender: BOGDAN, [facility]: [facility] JUDITH MCFADDEN Onovative Z03.818 Insurance Providers Payer name Policy type Policy ID Covered Covered libertarian's Policy P sherie / Coverage libertarian ID relationship to [employer] Inf ormation type caceres [employer] [id number] SP [id number] 01 HEALTHCARE HMO 1 COVID19 ONLY SELF PAY Problems, Conditions, and Diagnoses Code Display Name Description Problem Type Effective Data Sour ce(s) Dates Z03.818 Encounter for ENCNTR FOR OBS Diagnosis 12/27/2019 [facility] observation for FOR SUSP EXPSR TO 02:35:00 PM EXO5 suspected OTH BIOLG AGENTS EDT [facility] [employer] poration exposure to other RULED OUT biological agents ruled out Results ID Date Data Source [id number] 05/18/2020 03:47:00 PM EDT [facility] Name Value Range Interpretation Description Data Sup porting Code Source(s) Document(s ) SARS-CoV-2 [place] (COVID-19) RNA Medical [Presence] in Center Respiratory specimen by BREN with probe detection This lab was ordered by [facility] and reported by [facility]. ID Date Data Source [id number] 05/19/2020 09:46:00 AM EDT [facility] [id number] Name Value Range Interpretation Description Data Sup porting Code Source(s) Document(s ) SARS Undetected Undetected [facility], [place] PCR Negative results do not preclude SARS-Co V-2 infection andshould not be used as the sole basis for patient managementdecisio ns.Per FDA guidelines, this test has been internally validatedat [facility] ut ilizing known standards and patientsamples. Validation review by the FDA is pending. SARS Coronavirus-2, Source Nasopharyngeal [facility] ID Date Data Source [id number] 04/01/2020 12:00:00 AM EDT [facility] Name Value Range Interpretation Code Description Data Larissa rce(s) Supporting Document(s ) 2018-nCoV [facility] RNA XXX BREN+probe- Imp This lab was ordered by [facility] and re ported by [employer] ID Date Data Source [id number] 12/27/2019 12:00:00 AM EDT [facility] Name Value Range Interpretation Code Description Data Larissa rce(s) Supporting Document(s ) 2018-nCoV [facility] RNA XXX BREN+probe- Imp This lab was ordered by [facility] and reported by [employer] Procedure
[2020-07-05 19:36] VITALS: BP 149/74; PULSE 66; TEMP 98.3; BMI 25.0
[2020-07-05 20:20] LABS: BASO % 1.1 % (0-2.0); EOS % 3.5 % (0-4.5); HEMATOCRIT 35.8 % (32.4-45.2); HEMOGLOBIN 11.8 GM/dl (10.7-15.3); LYMPH % 37.4 % (8-40); MCH 30.5 pg (25.7-33.7); MCHC 32.9 g/dl (32.0-36.0); MEAN CELL VOLUME 92.8 fl (80-96); MEAN PLT VOLUME 7.6 fl (7.5-11.1); MONO % 6.7 % (3.8-10.2); NEUT % 51.3 % (42.8-82.8); PLATELET COUNT 311 K/MM3 (134-434); RBC 3.87 M/mm3 (3.60-5.2); RDW 14.2 % (11.6-15.6); WHITE BLOOD COUNT 7.6 K/mm3 (4.0-10.8)
[2020-07-05 20:39] LABS: ALBUMIN 3.9 g/dl (3.4-5.0); BILIRUBIN,TOTAL 0.4 mg/dl (0.2-1); CALCIUM 8.9 mg/dl (8.5-10); CREATININE 0.9 mg/dl (0.55-1.3); POTASSIUM 3.3 mmol/L (3.5-5.1); TOT PROT 6.5 g/dl (6.4-8.2)
[2020-07-05] MEDS ORDERED: MECLIZINE HCL 25 MG TABLET (FP) PO ONE (21:36)
[2020-07-05] MEDS ORDERED: POTASSIUM CHLORIDE TABS 20 MEQ TABLET.ER (FP) PO ONE ×2 (21:37)
[2020-07-05] MEDS ORDERED: MECLIZINE HCL 25 MG TABLET (FP) ONE (21:37)
[2020-07-05] MEDS ORDERED: diazePAM 5 MG TABLET PO ONE (22:32)
[2020-07-05] MEDS ORDERED: diazePAM 5 MG TABLET ONE (22:34)
== END 2020-07-05 23:08 | disposition home or self-care (01) ==
LOC: FER 19:17
DX: H81.10 Benign paroxysmal vertigo, unspecified ear (principal)
CPT/HCPCS: 36415; 70450-TC; 80053; 81003; 81015; 85025; 99284-25

== ENCOUNTER 2022-12-15 01:05 | Emergency (ER) | payer OTHER ==
[2022-12-15] MEDS ORDERED: ACETAMINOPHEN 500 MG TABLET (FP) PO ONE (01:19)
[2022-12-15] MEDS ORDERED: AZITHROMYCIN 500 MG TABLET PO ONE (01:19)
[2022-12-15 01:20] VITALS: BP 151/87; PULSE 74; RESP 18; TEMP 101.3; BMI 24.7
[2022-12-15] MEDS ORDERED: guaiFENesin/D-METHORPHAN HB 10 ML UNIT-DOSE CUPS ONE (01:35)
[2022-12-15] MEDS ORDERED: ACETAMINOPHEN 500 MG TABLET (FP) ONE (01:35)
[2022-12-15] MEDS ORDERED: guaiFENesin/D-METHORPHAN HB 10 ML UNIT-DOSE CUPS PO ONE (01:35)
[2022-12-15] MEDS ORDERED: AZITHROMYCIN 500 MG TABLET ONE (01:35)
== END 2022-12-15 01:44 | disposition home or self-care (01) ==
LOC: FER 01:05
DX: R51.9 Headache, unspecified (principal); M79.10 Myalgia, unspecified site; R05.1 Acute cough; R09.81 Nasal congestion; Z20.822 Contact with and (suspected) exposure to COVID-19
CPT/HCPCS: 0241U-QW; 99283-25

== ENCOUNTER 2023-02-01 02:14 | Inpatient (IN) | payer OTHER ==
[2023-02-01] MEDS ORDERED: morphine CARPU-JECT 4 MG/1 ML DISP.SYRIN IVPUSH ONE (02:50)
[2023-02-01] MEDS ORDERED: morphine SULFATE 4 MG/ML VIAL IVPUSH ONE (02:50)
[2023-02-01] MEDS ORDERED: SODIUM CHLORIDE 1,000 ML IV ONE (02:50)
[2023-02-01] MEDS ORDERED: morphine SULFATE 4 MG/ML VIAL ONE (02:59)
[2023-02-01] MEDS ORDERED: ONDANSETRON 4 MG/2 ML VIAL ONE (03:15)
[2023-02-01 03:59] LABS: HEMATOCRIT 41.4 % (32.4-45.2); HEMOGLOBIN 13.8 GM/dL (10.7-15.3); MCHC 33.4 g/dl (32.0-36.0); MEAN CELL VOLUME 89.9 fl (80-96); MEAN PLT VOLUME 7.6 fl (7.5-11.1); PLATELET COUNT 374 10^3/uL (134-434); RBC 4.61 M/mm3 (3.60-5.2); RDW 16.3 % (11.6-15.6)
[2023-02-01] MEDS ORDERED: ONDANSETRON 4 MG/2 ML VIAL IVPB ONE (04:02)
[2023-02-01] MEDS ORDERED: ACETAMINOPHEN 1000 MG/100 ML BAG IVPB ONE (04:02)
[2023-02-01] MEDS ORDERED: traMADol HCL 50 MG TABLET PO ONE (04:15)
[2023-02-01 04:17] LABS: POTASSIUM 3.6 mmol/L (3.5-5.1)
[2023-02-01 04:20] LABS: CALCIUM 10.7 mg/dL (8.5-10.1)
[2023-02-01 04:23] LABS: CREATININE 1.1 mg/dL (0.55-1.3)
[2023-02-01 04:25] LABS: BILIRUBIN,TOTAL 0.5 mg/dL (0.2-1); TOT PROT 7.7 g/dl (6.4-8.2)
[2023-02-01] MEDS ORDERED: HYDROmorphone HCL/PF 1 MG/ML VIAL ONE (06:07)
[2023-02-01] MEDS ORDERED: METOCLOPRAMIDE HCL INJECTION 10 MG/2 ML VIAL ONE (06:07)
[2023-02-01] MEDS ORDERED: HYDROmorphone HCl 2 MG/ML VIAL IVPUSH ONE (06:07)
[2023-02-01] MEDS ORDERED: METOCLOPRAMIDE HCL INJECTION 10 MG/2 ML VIAL IVPUSH ONE (06:07)
[2023-02-01] MEDS: SODIUM CHLORIDE 1,000 ML IV SCH (07:19)
[2023-02-01 07:23] VITALS: RESP 18
[2023-02-01] MEDS: LACTATED RINGERS SOLUTION 1,000 ML/1,000 ML INFUS.BAG IV SCH (11:23)
[2023-02-01] MEDS: ACETAMINOPHEN 1000 MG/100 ML BAG IVPB PRN ×2 (11:24→17:34)
[2023-02-01] MEDS: METOCLOPRAMIDE HCL INJECTION 10 MG/2 ML VIAL IVPUSH PRN ×2 (11:35→17:35)
[2023-02-01] MEDS: KETOROLAC TROMETHAMINE 15 MG/ML VIAL IVPUSH PRN ×2 (14:20→23:52)
[2023-02-01] MEDS ORDERED: PANTOPRAZOLE SODIUM 40 MG VIAL IVPB SCH (15:00)
[2023-02-01] MEDS ORDERED: PANTOPRAZOLE SODIUM 40 MG VIAL IVPUSH SCH (15:15)
[2023-02-02] MEDS: ACETAMINOPHEN 1000 MG/100 ML BAG IVPB PRN (00:28)
[2023-02-02 08:16] LABS: BILIRUBIN,TOTAL 0.5 mg/dl (0.2-1); CALCIUM 8.5 mg/dl (8.5-10); CREATININE 0.9 mg/dl (0.55-1.3); POTASSIUM 3.9 mmol/L (3.5-5.1); TOT PROT 5.4 g/dl (6.4-8.2)
[2023-02-02 09:22] LABS: HEMATOCRIT 32.5 % (32.4-45.2); HEMOGLOBIN 11.2 GM/dL (10.7-15.3); MCHC 34.4 g/dl (32.0-36.0); MEAN CELL VOLUME 90.1 fl (80-96); MEAN PLT VOLUME 8.3 fl (7.5-11.1); PLATELET COUNT 230 10^3/uL (134-434); RBC 3.61 M/mm3 (3.60-5.2); RDW 15.7 % (11.6-15.6); WHITE BLOOD COUNT 6.5 K/mm3 (4.0-10.0)
[2023-02-02] MEDS: LACTATED RINGERS SOLUTION 1,000 ML/1,000 ML INFUS.BAG IV SCH (09:29)
[2023-02-02] MEDS: SODIUM CHLORIDE 1,000 ML IV SCH (09:32)
[2023-02-02 15:42] VITALS: BMI 25.1
[2023-02-02] MEDS: KETOROLAC TROMETHAMINE 15 MG/ML VIAL IVPUSH PRN (17:30)
[2023-02-02 18:06] VITALS: BP 132/80; PULSE 83; TEMP 98.3
== END 2023-02-02 17:40 | disposition home or self-care (01) | DRG 390 ==
LOC: FER 02:14 → FM/S 06:56 → UNDODISIN 02-02 14:11
PROVIDERS: ADMIT Internal Medicine
DX: K56.609 Unspecified intestinal obstruction, unspecified as to partial versus complete obstruction (principal); E03.9 Hypothyroidism, unspecified; E78.5 Hyperlipidemia, unspecified; E83.52 Hypercalcemia; K21.9 Gastro-esophageal reflux disease without esophagitis
CPT/HCPCS: 36415; 71045-TC-FY; 74019-TC-FY; 74177-TC; 74251-TC-FY; 80053; 81003; 81015; 82310; 83605; 83615; 83690; 83970; 84439; 84443; 85025; 85027; 87635; 93005; 99285-25; Q9967

== ENCOUNTER 2023-10-17 06:39 | Day surgery (SDC) | payer OTHER ==
[2023-10-12 16:45] VITALS: BMI 23.9
[2023-10-17] MEDS ORDERED: CYCLOPENTOLATE 2% OPHTH SOLN 2 ML BOTTLE ONE (06:42)
[2023-10-17] MEDS ORDERED: TROPICAMIDE 1% OPHTH SOLN 15 ML BOTTLE ONE (06:42)
[2023-10-17] MEDS ORDERED: CIPROFLOXACIN 0.3% EYE DROPS 5 ML BOTTLE ONE (06:42)
[2023-10-17] MEDS ORDERED: PHENYLEPHRINE 2.5% OPTHALMIC DROP 2ML BOTTLE ONE (06:42)
[2023-10-17] MEDS: CYCLOPENTOLATE 2% OPHTH SOLN 2 ML BOTTLE OS ONE ×3 (06:55→07:05)
[2023-10-17] MEDS: CIPROFLOXACIN 0.3% EYE DROPS 5 ML BOTTLE OS ONE ×3 (06:55→07:05)
[2023-10-17] MEDS: PHENYLEPHRINE 2.5% OPHTH SOLN 15 ML BOTTLE OS ONE ×3 (06:55→07:05)
[2023-10-17] MEDS: TROPICAMIDE 1% OPHTH SOLN 15 ML BOTTLE OS ONE ×3 (06:55→07:05)
[2023-10-17 07:02] VITALS: RESP 16; TEMP 97.5
[2023-10-17] MEDS ORDERED: MIDAZOLAM HCL 2 MG/2 ML SINGLE DOSE VIAL ONE ×2 (07:10→08:27)
[2023-10-17] MEDS ORDERED: LIDOCAINE 1% P/F 10 MG/ML VIAL ONE (07:14)
[2023-10-17] MEDS ORDERED: EPINEPHrine/PF 1 MG/1 ML (1:1,000) AMPULE ONE (07:14)
[2023-10-17] MEDS ORDERED: BSS (NA/CA/MG/K) BALANCED SALT SOLUTION OPHTH SOLN 15 ML BOTTLE ONE (07:15)
[2023-10-17] MEDS ORDERED: CARBACHOL 0.01% INTRA-OCULAR 1.5 ML VIAL ONE (07:15)
[2023-10-17] MEDS ORDERED: TETRACAINE 0.5% OPHTH SOLN 2 ML BOTTLE ONE (07:15)
[2023-10-17] MEDS ORDERED: NEO/POLYMYX B SULF/DEXAMETH OPHTHALMIC 5ML BOTTLE ONE (07:15)
[2023-10-17 08:50] VITALS: PULSE 49
[2023-10-17 09:18] VITALS: BP 110/65
== END 2023-10-17 10:00 | disposition home or self-care (01) ==
LOC: FASU 06:39
PROVIDERS: ATTEND Ophthalmology
PROC: 08RK3JZ Replacement of Left Lens with Synthetic Substitute, Percutaneous Approach (ICD-10-PCS; principal; 2023-10-17 08:27)
DX: H26.8 Other specified cataract (principal)
CPT/HCPCS: 66984; V2632

== ENCOUNTER 2024-04-03 07:48 | Emergency (ER) | payer OTHER ==
[2024-04-03 08:00] VITALS: TEMP 99; BMI 24.1
[2024-04-03] MEDS ORDERED: IBUPROFEN 600 MG TABLET (FP) PO ONE (08:14)
[2024-04-03] MEDS: IBUPROFEN 600 MG TABLET (FP) PO ONE (08:15)
[2024-04-03 09:46] VITALS: BP 142/74; PULSE 52; RESP 16
== END 2024-04-03 09:44 | disposition home or self-care (01) ==
LOC: FER 07:48
DX: M25.511 Pain in right shoulder (principal); M25.552 Pain in left hip; M25.562 Pain in left knee; W01.0XXA Fall on same level from slipping, tripping and stumbling without subsequent striking against object, initial encounter
CPT/HCPCS: 72170-TC-FY; 72220-TC-FY; 73030-TC-RT-FY; 73060-TC-RT-FY; 73562-TC-LT-FY; 99284-25